=== PATIENT | male | born 1945 | race Caucasian/White ===

== ENCOUNTER → 2017-03-02 | Outpatient (CLI) | payer MEDICARE, BC ==
[2015-11-15 11:45] VITALS: BP 100/50
[~2017-03-02] MED LIST: ASPI81TA9 PO; INSU100V8 SQ; LISI10TA2 PO; MORP15TA34 PO; MULT-475 PO; NAPR500T PO; OXYC-244 PO
--- NOTE | 2017-03-02 16:33 | CARD ---
APPROVED REPORT EXAM: Two-dimensional and M-mode echocardiogram with Doppler and color Doppler. Other Information Quality : Technically Limited Technically limited study due to body habitus. INDICATION Ascending Aortic Aneurysm 2D DIMENSIONS RVDd2.7 (2.9-3.5cm)Left Atrium(2D)3.7 (1.6-4.0cm) IVSd1.2 (0.7-1.1cm)Aortic Root(2D)4.3 (2.0-3.7cm) LVDd5.9 (3.9-5.9cm)LVOT Diameter2.7 (1.8-2.4cm) PWd1.3 (0.7-1.1cm)LVDs3.6 (2.5-4.0cm) FS (%) 30.0 %SV120.6 ml LVEF(%)60.0 (>50%) M-Mode DIMENSIONS Aortic Cusp Exc1.20 (1.5-2.0cm) Aortic Valve AoV Peak Tevin.288.0cm/sAoV VTI73.6cm AO Peak GR.33.0mmHgLVOT Peak Tevin.97.5cm/s LVOT VTI 22.76cmAO Mean GR.21mmHg MARTINA (VMAX)1.55zx4UHT (VTI)1.78cm2 Mitral Valve MV E Iypnkxsf463.6cm/sMV DECEL VPCW321zq MV A Ovnfghqs16.4cm/sMV VOH04ag E/A Ratio1.1MVA (PHT)3.16cm2 TDI E/Lateral E'15.1E/Medial E'17.7 Pulmonary Vein S1 Wzotjrnv54.1cm/sD2 Qelexwdd83.1cm/s PVa [id number] LEFT VENTRICLE The left ventricle is normal size. There is mild concentric left ventricular hypertrophy. The left ve ntricular systolic function is normal and the ejection fraction is within normal range. The Ejection Fraction is 55-60%. There is normal LV segmental wall motion. Transmitral Doppler flow pattern is Gra de I-abnormal relaxation pattern. RIGHT VENTRICLE The right ventricle is normal size. The right ventricular systolic function is normal. ATRIA The left atrium size is normal. The right atrium size is normal. The interatrial septum is intact wit h no evidence for an atrial septal defect or patent foramen ovale as noted on 2-D or Doppler imaging. AORTIC VALVE The aortic valve is severely thickened with decreased opening. Doppler and Color Flow revealed trace aortic regurgitation. Calculated aortic valve area is 1.78 cm2 with maximum pressure gradient of 33 m mHg and mean pressure gradient of 21 mmHg. Doppler and color-flow analysis revealed mild aortic steno sis. Visually the valve appears moderately stenotic. MITRAL VALVE The mitral valve is calcified but opens well. There is no evidence of mitral valve prolapse. There is no mitral valve stenosis. Doppler and Color Flow revealed no mitral valve regurgitation noted. TRICUSPID VALVE The tricuspid valve is normal in structure and function. Doppler and Color Flow revealed no tricuspid valve regurgitation noted. There is no tricuspid valve stenosis. PULMONIC VALVE Doppler and Color Flow revealed no pulmonic valvular regurgitation. There is no pulmonic valvular yolanda nosis. GREAT VESSELS The aortic root is mildly dilated at 4.3 cm. The ascending aorta is mildly dilated at 4.3 cm. The IVC was not visualized. PERICARDIAL EFFUSION There is no evidence of significant pericardial effusion. Critical Notification Critical Value: No <Conclusion> The left ventricular systolic function is normal and the ejection fraction is within normal range. Th e Ejection Fraction is 55-60%. There is normal LV segmental wall motion. Calculated aortic valve area is 1.78 cm2 with maximum pressure gradient of 33 mmHg and mean pressure gradient of 21 mmHg. Doppler and color-flow analysis revealed mild aortic stenosis. Visually the valv e appears moderately stenotic. The ascending aorta is mildly dilated at 4.3 cm.
== END | disposition home or self-care (01) ==
LOC: ECHO 09:45
PROVIDERS: ATTEND Internal Medicine Cardiovascular Disease
DX: I35.1 Nonrheumatic aortic (valve) insufficiency (principal)
CPT/HCPCS: 93306

== ENCOUNTER → 2017-09-10 | Outpatient (CLI) | payer MEDICARE, BC ==
[2015-11-15 11:45] VITALS: BP 100/50
[~2017-09-10] MED LIST changes: +ASPI-612 PO; -ASPI81TA9 PO; -MORP15TA34 PO; +MORP15TA80 PO; +NAPR-683 PO; -NAPR500T PO; -OXYC-244 PO; +OXYC-327 PO
--- NOTE | 2017-09-10 11:38 | CARD ---
APPROVED REPORT EXAM: Two-dimensional and M-mode echocardiogram with Doppler and color Doppler. Other Information Quality : Average INDICATION Aortic Valve Disease 2D DIMENSIONS Left Atrium(2D)3.3 (1.6-4.0cm)IVSd1.4 (0.7-1.1cm) Aortic Root(2D)3.7 (2.0-3.7cm)LVDd4.6 (3.9-5.9cm) LVOT Diameter2.0 (1.8-2.4cm)PWd1.2 (0.7-1.1cm) LVDs3.1 (2.5-4.0cm)FS (%) 33.5 % SV61.5 mlLVEF(%)62.3 (>50%) Aortic Valve AoV Peak Tevin.318.2cm/sAoV VTI87.6cm AO Peak GR.40.5mmHgLVOT Peak Tevin.68.1cm/s AO Mean GR.27mmHgAVA (VMAX)0.70cm2 MARTINA (VTI)0.70cm2 Mitral Valve MV E Nobckwnu69.3cm/sMV DECEL BSPA072en MV A Quczrygi08.0cm/sE/A Ratio0.8 Tricuspid Valve TR P. Cfkmxfry048oc/sRAP EIMRQDCE3shCf TR Peak Gr.39kvZeMCBU34meUd LEFT VENTRICLE The left ventricle is normal size. There is mild to moderate concentric left ventricular hypertrophy. Left ventricle systolic function is low normal. The Ejection Fraction is 50-55%. There is normal LV segmental wall motion. Transmitral Doppler flow pattern is consistent with mild diastolic dysfunction . RIGHT VENTRICLE The right ventricle is mildly dilated. The right ventricular systolic function is normal. ATRIA The left atrium size is normal. The right atrium is mildly dilated. The interatrial septum is intact with no evidence for an atrial septal defect or patent foramen ovale as noted on 2-D or Doppler imagi ng. AORTIC VALVE The aortic valve is mildly to moderately calcified. Doppler and Color Flow revealed no significant ao rtic regurgitation. There is moderate to severe valvular aortic stenosis. Calculated aortic valve are a is 0.7 cm2 with maximum pressure gradient of 41 mmHg and mean pressure gradient of 27 mmHg. MITRAL VALVE The mitral valve is calcified but opens well. There is no evidence of mitral valve prolapse. There is no mitral valve stenosis. Doppler and Color Flow revealed no mitral valve regurgitation noted. TRICUSPID VALVE The tricuspid valve is normal in structure. Doppler and Color Flow revealed trace tricuspid regurgita tion. There is no pulmonary hypertension. The PA pressure was estimated at 16 mmHg. There is no tricu spid valve prolapse or vegetation. There is no tricuspid valve stenosis. PULMONIC VALVE The pulmonary valve is normal in structure and function. Doppler and Color Flow revealed no pulmonic valvular regurgitation. There is no pulmonic valvular stenosis. GREAT VESSELS The aortic root is normal in size. The ascending aorta is normal in size. The IVC is normal in size a nd collapses >50% with inspiration. PERICARDIAL EFFUSION There is no pleural effusion. There is no evidence of significant pericardial effusion. Critical Notification Critical Value: No <Conclusion> Left ventricle systolic function is low normal. The Ejection Fraction is 50-55%. There is normal LV segmental wall motion. There is moderate to severe valvular aortic stenosis. Calculated aortic valve area is 0.7 cm2 with ma ximum pressure gradient of 41 mmHg and mean pressure gradient of 27 mmHg.
== END | disposition home or self-care (01) ==
LOC: ECHO 09:05
PROVIDERS: ATTEND Internal Medicine Cardiovascular Disease
DX: I35.0 Nonrheumatic aortic (valve) stenosis (principal); I51.7 Cardiomegaly
CPT/HCPCS: 93306

== ENCOUNTER → 2017-09-17 | Outpatient (CLI) | payer MEDICARE, BC ==
[2015-11-15 11:45] VITALS: BP 100/50
[~2017-09-17] MED LIST changes: +IOHEXOL 300 MG/ML 100ML VIAL. IV ONE
--- NOTE | 2017-09-17 11:45 | RAD ---
Examination: CT angiogram of the chest History: History of aortic aneurysm. Comparison: 03/15/2016 Technique: Axial CT and radiographic images were performed with IV contrast. Coronal and sagittal 3-D MIP reformats were performed. PQRS Compliance Statement: One or more of the following individualized dose reduction techniques were utilized for this examination: 1. Automated exposure control 2. Adjustment of the mA and/or kV according to patient size 3. Use of iterative reconstruction technique Findings: The visualized thyroid gland grossly is unremarkable. The central airways are patent. The ascending aorta measures 4.7 cm in transverse dimension which is unchanged compared to prior exam. Aortic valve calcifications identified. The visualized arch of the aorta, descending aorta demonstrate mild atherosclerotic calcifications. The heart size grossly appears unremarkable. No evidence of pericardial effusion. No radiologically significant mediastinal lymphadenopathy. Mild interstitial lung markings identified in the periphery of the lungs particularly in the bibasal lungs. There is mild decreased attenuation noted throughout the liver likely hepatic steatosis. Partially visualized cholelithiasis. The visualized adrenal glands grossly appears unremarkable. Coronary artery calcification is identified. There is no evidence of filling defect identified in the main pulmonary artery trunk and right and left main pulmonary arteries. Moderate degenerative changes thoracic spine. Impression: 1. Unchanged ascending aortic aneurysmal change. 2. Coronary artery calcifications. 3. Minimal interstitial lung markings prominent appearing interstitial lung markings identified in the periphery of the lungs similar to prior exam could be chronic interstitial changes. 4. Hepatic steatosis. Cholelithiasis.
== END | disposition home or self-care (01) ==
LOC: CT 14:44
PROVIDERS: ATTEND Internal Medicine Cardiovascular Disease
DX: I71.9 Aortic aneurysm of unspecified site, without rupture (principal); I70.0 Atherosclerosis of aorta; K80.20 Calculus of gallbladder without cholecystitis without obstruction; I25.10 Atherosclerotic heart disease of native coronary artery without angina pectoris; R91.8 Other nonspecific abnormal finding of lung field; K76.0 Fatty (change of) liver, not elsewhere classified
CPT/HCPCS: 71275; Q9967

== ENCOUNTER 2020-03-12 11:09 | Inpatient (IN) | payer MEDICARE, BC ==
[~2020-03-12] VITALS: Ht 185.4 cm; Wt 115.2 kg
[~2020-03-12 11:09] MED LIST changes: -IOHEXOL 300 MG/ML 100ML VIAL. IV ONE; -OXYC-327 PO; +OXYC1TAB19 PO
--- NOTE | 2020-03-12 11:50 | NUR ---
Patient arrived to room 205 via wheelchair at 1150. Patient is A&OX4. VSS. The patient, JAVIER BASS, 74 y/o, M admitted by ARIE AMADO MD, was given written information regarding hospital policies, unit procedures and contact persons. Valuables were checked and noted. Will continue to monitor.
[2020-03-12 11:51] VITALS: BP 130/56
[2020-03-12] MEDS ORDERED: FUROSEMIDE 40 MG/4 ML VIAL. IVP ONE ×2 (12:00→14:15)
[2020-03-12] MEDS ORDERED: GABA300C9 PO (12:35)
[2020-03-12] MEDS ORDERED: TAMS0.4C97 PO (12:35)
[2020-03-12] MEDS ORDERED: METO25TA4 PO (12:37)
--- NOTE | 2020-03-12 13:24 | RAD ---
CHEST PA LATERAL History: Reason: CONGESTIVE HEART FAILURE, WEAKNESS / Spl. Instructions: / History: Comparison: CT September 17, 2017 Findings: Linear and ill-defined of by lateral mid and lower lung opacities. No pleural effusion. No pneumothorax. Borderline enlarged cardiac size. DISH related changes of the thoracic spine. Impression: 1. Bilateral linear and ill-defined opacities, may represent atelectasis and/or consolidations. Recommend follow-up. Electronically signed by: Skyler Sanchez DO (03/12/2020 1:21 PM) [id number]
[2020-03-12 13:43] LABS: ALBUMIN 2.6 g/dL (3.4-5.0); ALBUMIN/GLOBULIN RATIO 0.7 (1.0-1.7); CALCIUM 7.8 mg/dL (8.5-10.1); CREATININE 1.9 mg/dL (0.7-1.3); GFR 34.7; POTASSIUM 4.6 mmol/L (3.5-5.1); TOTAL BILIRUBIN 1.4 mg/dL (0.2-1.0); TOTAL PROTEIN 6.5 g/dL (6.4-8.2)
--- NOTE | 2020-03-12 14:11 | EKG ---
[facility] [address] [place] [address] Test Date: 2020-03-12 Test Time: 14:07:43 Pat Name: JAVIER BASS Department: Room: 205 1 Gender: M Vice President Of Development: : 1945 Requested By: ARIELLE YEPEZ Order Number: [id number] Reading MD: Jeffrey Gonzalez MD Measurements Intervals [place] Rate: 71 P: 147 MO: 164 QRS: 189 QRSD: 98 T: 183 QT: 416 QTc: 457 Interpretive Statements SINUS RHYTHM LEAD MISPLACEMENT NON-SPECIFIC ST/T CHANGES Electronically Signed On 03-15-2020 12:18:26 CDT by Jeffrey Gonzalez MD
[2020-03-12 14:15] VITALS: BP 133/66
[2020-03-12 14:29] LABS: BASO % 1 % (0-3); EOS % 1 % (0-3); HEMATOCRIT 35.5 % (39.0-53.0); LYMPH # 0.6 x10^3/uL (1.0-4.8); LYMPH % 18 % (24-48); MEAN CORPUSCULAR HEMOGLOBIN 28 pg (25-35); MEAN CORPUSCULAR HGB CONC 34 g/dL (31-37); MEAN CORPUSCULAR VOLUME 83 fL (79-100); MONO # 0.2 x10^3/uL (0.0-1.1); MONO % 6 % (0-9); NEUT # 2.5 x10^3/uL (1.8-7.7); NEUT % 74 % (31-73); PLATELET COUNT 46 x10^3/uL (140-400); RED BLOOD COUNT 4.31 x10^6/uL (4.30-5.70); RED CELL DISTRIBUTION WIDTH 15.6 % (11.5-14.5); WHITE BLOOD COUNT 3.4 x10^3/uL (4.0-11.0)
[2020-03-12 14:38] VITALS: BP 119/69
[2020-03-12 15:05] LABS: PLT ESTIMATE DECREASED (ADEQUATE)
[2020-03-12] MEDS: INSULIN LISPRO 300 UNITS/3 ML VIAL. SQ SCH (17:00)
[2020-03-12 18:18] VITALS: BP 130/59
--- NOTE | 2020-03-12 19:30 | NUR ---
Assessment completed vss poc explained pt c/o bilateral lower ext foot pain will medicate pt and continue to monitor pt.Call light in reach bed alarm set will resume care.
--- NOTE | 2020-03-12 20:24 | NUR ---
Call placed to Dr. Gonzalez re pt with pain and no medication order.
[2020-03-12] MEDS: METOPROLOL TART IMMED RELEASE 25 MG TABLET. PO SCH (20:51)
[2020-03-12] MEDS: GABAPENTIN 300 MG CAPSULE. PO SCH (20:51)
[2020-03-12] MEDS: INSULIN GLARGINE SYRINGE. SQ SCH (20:52)
[2020-03-12] MEDS: oxyCODONE/APAP 7.5/325 1 TAB TABLET PO PRN (20:57)
[2020-03-12 23:22] VITALS: BP 114/70
[2020-03-13 02:58] VITALS: BP 107/62
[2020-03-13 05:20] LABS: CALCIUM 7.6 mg/dL (8.5-10.1); CREATININE 1.8 mg/dL (0.7-1.3); MAGNESIUM 1.9 mg/dL (1.8-2.4); POTASSIUM 3.8 mmol/L (3.5-5.1)
[2020-03-13 07:09] VITALS: BP 117/65
[2020-03-13] MEDS: INSULIN LISPRO 300 UNITS/3 ML VIAL. SQ SCH ×3 (08:00→17:00)
[2020-03-13] MEDS: METOPROLOL TART IMMED RELEASE 25 MG TABLET. PO SCH ×2 (08:05→21:20)
[2020-03-13] MEDS: TAMSULOSIN 0.4 MG CAP.ER.24H. PO SCH (08:05)
[2020-03-13] MEDS: GABAPENTIN 300 MG CAPSULE. PO SCH ×2 (08:05→21:20)
[2020-03-13] MEDS: FUROSEMIDE 40 MG/4 ML VIAL. IVP SCH ×2 (08:06→15:45)
[2020-03-13] MEDS: oxyCODONE/APAP 7.5/325 1 TAB TABLET PO PRN ×2 (08:06→21:21)
--- NOTE | 2020-03-13 09:40 | PDOC ---
CARDIOLOGY PROGRESS NOTE SUBJECTIVE: Please see paper H&P from chart for full details: Mr. Pruett was admitted yesterday directly from the office due to progressive HF symptoms. Initial evaluation confirms suspicions for heart failure and also new diagnosis of thrombocytopenia (Patient apparently was having some sort of w/u with PCP recently but not yet completed) Today, he reports that he urinated well. Denies any pain but continues to have dyspnea issues. No palpitations. No new bleeding issues. OBJECTIVE: Vital Signs/I&O: Vital Signs Date Time Temp Pulse Resp B/P (MAP) Pulse Ox O2 Delivery O2 Flow Rate FiO2 03/13/20 08:06 95 Room Air 03/13/20 08:05 74 117/65 03/13/20 07:09 98.0 18 98.0 I & O 03/12/20 03/12/20 03/13/20 15:00 23:00 07:00 Intake Total 60 ml 1100 ml Output Total 200 ml 1225 ml 400 ml Balance -200 ml -1165 ml 700 ml Objective: Sitting in bed. No acute distress Neck veins at 7 cm. Normal heart tones. Lungs clr Obese abdomen 1+ pedal edema. Bilateral small petechiae and ecchymosis on the shins CURRENT MEDICATIONS: Lasix 40mg IV BID Metoprolol 25mg p.o bid. DIAGNOSTIC TESTING: Labs reviewed. Cr 1.8 Plt 46. Labs: Laboratory Tests 03/12/20 13:20 03/13/20 04:30 Laboratory Tests Test 03/12/20 12:17 03/12/20 13:20 03/12/20 17:09 03/13/20 04:30 Glucose (Fingerstick) 106 mg/dL (70-99) H 108 mg/dL (70-99) H White Blood Count 3.4 x10^3/uL (4.0-11.0) L Red Blood Count 4.31 x10^6/uL (4.30-5.70) Hemoglobin 12.0 g/dL (13.0-17.5) L Hematocrit 35.5 % (39.0-53.0) L Mean Corpuscular Volume 83 fL (79-100) Mean Corpuscular Hemoglobin 28 pg (25-35) Mean Corpuscular Hemoglobin Concent 34 g/dL (31-37) Red Cell Distribution Width 15.6 % (11.5-14.5) H Platelet Count 46 x10^3/uL (140-400) L Neutrophils (%) (Auto) 74 % (31-73) H Lymphocytes (%) (Auto) 18 % (24-48) L Monocytes (%) (Auto) 6 % (0-9) Eosinophils (%) (Auto) 1 % (0-3) Basophils (%) (Auto) 1 % (0-3) Neutrophils # (Auto) 2.5 x10^3/uL (1.8-7.7) Lymphocytes # (Auto) 0.6 x10^3/uL (1.0-4.8) L Monocytes # (Auto) 0.2 x10^3/uL (0.0-1.1) Eosinophils # (Auto) 0.0 x10^3/uL (0.0-0.7) Basophils # (Auto) 0.0 x10^3/uL (0.0-0.2) Platelet Estimate Decreased (ADEQUATE) Sodium Level 133 mmol/L (136-145) L 131 mmol/L (136-145) L Potassium Level 4.6 mmol/L (3.5-5.1) 3.8 mmol/L (3.5-5.1) Chloride Level 100 mmol/L (98-107) 99 mmol/L (98-107) Carbon Dioxide Level 24 mmol/L (21-32) 24 mmol/L (21-32) Anion Gap 9 (6-14) 8 (6-14) Blood Urea Nitrogen 33 mg/dL (8-26) H 33 mg/dL (8-26) H Creatinine 1.9 mg/dL (0.7-1.3) H 1.8 mg/dL (0.7-1.3) H Estimated GFR (Cockcroft-Gault) 34.7 37.0 BUN/Creatinine Ratio 17 (6-20) Glucose Level 103 mg/dL (70-99) H 89 mg/dL (70-99) Calcium Level 7.8 mg/dL (8.5-10.1) L 7.6 mg/dL (8.5-10.1) L Total Bilirubin 1.4 mg/dL (0.2-1.0) H Aspartate Amino Transf (AST/SGOT) 19 U/L (15-37) Alkaline Phosphatase 140 U/L (46-116) H Total Protein 6.5 g/dL (6.4-8.2) Albumin 2.6 g/dL (3.4-5.0) L Albumin/Globulin Ratio 0.7 (1.0-1.7) L Thyroid Stimulating Hormone (TSH) 3.319 uIU/mL (0.358-3.74) Test 03/13/20 07:51 Glucose (Fingerstick) 72 mg/dL (70-99) ASSESSMENT: 1. Acute probable systolic and diastolic HF - Awaiting echo tomorrow. 2. Acute kidney injury - likely related to #1 3. Thrombocytopenia - etiology unclear 4. Moderate aortic stenosis with known bicuspid valve and ascending aortic aneurysm. PLAN: 1. Check coags, repeat CBC today. Await hematology eval. 2. Continue current diuresis with close monitoring of renal function. 3. Will likely need a RHC on sunday. 4. Consider outpt CT scan for evaluation of aneurysm after renal function stabilizes. Discussed with nursing staff and patient. Thanks. ARIE AMADO MD March 13, 2020 09:40
[2020-03-13 10:31] LABS: BASO % 1 % (0-3); EOS % 1 % (0-3); HEMATOCRIT 33.3 % (39.0-53.0); HEMOGLOBIN 11.3 g/dL (13.0-17.5); LYMPH # 0.8 x10^3/uL (1.0-4.8); LYMPH % 22 % (24-48); MEAN CORPUSCULAR HEMOGLOBIN 28 pg (25-35); MEAN CORPUSCULAR HGB CONC 34 g/dL (31-37); MEAN CORPUSCULAR VOLUME 83 fL (79-100); MONO # 0.3 x10^3/uL (0.0-1.1); MONO % 7 % (0-9); NEUT # 2.4 x10^3/uL (1.8-7.7); NEUT % 69 % (31-73); PLATELET COUNT 55 x10^3/uL (140-400); RED BLOOD COUNT 4.03 x10^6/uL (4.30-5.70); RED CELL DISTRIBUTION WIDTH 15.8 % (11.5-14.5); WHITE BLOOD COUNT 3.4 x10^3/uL (4.0-11.0)
[2020-03-13 10:46] VITALS: BP 114/57
[2020-03-13 11:18] LABS: PROTHROMBIN TIME PATIENT 13.8 SEC (11.7-14.0)
[2020-03-13 14:35] VITALS: BP 105/55
--- NOTE | 2020-03-13 15:57 | PDOC2 ---
CONSULT Date of Consult Date of Consult DATE: 03/13/20 TIME: 15:06 Reason for Consult Reason for Consult: Thrombocytopenia Referring Physician Referring Physician: Dr. Jeffrey Gonzalez Identification/Chief Complaint Chief Complaint Pancytopenia Source Source: Chart review History of Present Illness Reason for Visit: Mr. Ned Pruett is a 74 year-old male with past medical history significant for morbid obesity, diabetes mellitus, hepatic steatosis at least since 2015, hyperlipidemia, increased interstitial markings on CT chest from 5841-7808, concerning for ILD, emphysema/COPD on 03/12/20 CXR, bicuspid aortic valve, moderate aortic stenosis in 2017 with aortic valve area of 0.7 cm2, BPH, history of early stage colon cancer (cecum), s/p right hemicolectomy in 04/2014. According to Dr. Jeffrey Gonzalez, the patient was admitted with worsening shortness of breath/CHF. 03/12/20 CBC revealed pancytopenia, with WBC 3.4, Hgb 12.0, platelets 46. Prior CBC from 04/2014 was completely normal. Apparently, work-up for recent thrombocytopenia was initiated by PCP, results pending. The patient, apparently, has new onset renal failure as well, with creatinine of 1.8 as of 03/12/20. Past Medical History Cardiovascular: CHF, Hyperlipidemia, Aortic stenosis Pulmonary: COPD CENTRAL NERVOUS SYSTEM: Periperal neuropathy GI: Other (Cholelithiasis) Heme/Onc: Cancer (Cecum) Musculoskeletal: low back pain, Osteoarthritis, Swelling Renal/: Acute renal failure, Benign prostatic enlarg. Endocrine: Diabetes Past Surgical History Past Surgical History: Colon Resection Social History Quit ALCOHOL: occassional Current Problem List Problem List Pancytopenia, renal failure, morbid obesity, diabetes mellitus, hepatic steatosis at least since 2015, hyperlipidemia, increased interstitial markings on CT chest from 3154-3952, concerning for ILD, emphysema/COPD on 03/12/20 CXR, bicuspid aortic valve, moderate aortic stenosis in 2017 with aortic valve area of 0.7 cm2, BPH. Current Medications Current Medications Current Medications Furosemide (Lasix) 40 mg 1X ONCE IVP ; Start 03/12/20 at 12:00; Stop 03/12/20 at 14:03; Status DC Furosemide (Lasix) 60 mg 1X ONCE IVP Last administered on 03/12/20at 14:18; Start 03/12/20 at 14:15; Stop 03/12/20 at 14:16; Status DC Gabapentin (Neurontin) 300 mg BID PO Last administered on 03/13/20at 08:05; Start 03/12/20 at 21:00 Insulin Glargine (Lantus Syringe) 70 unit QHS SQ Last administered on 03/12/20at 20:52; Start 03/12/20 at 21:00 Metoprolol Tartrate (Lopressor) 25 mg BID PO Last administered on 03/13/20at 08:05; Start 03/12/20 at 21:00 Tamsulosin HCl (Flomax) 0.4 mg DAILY PO Last administered on 03/13/20at 08:05; Start 03/13/20 at 09:00 Furosemide (Lasix) 40 mg BID94 IVP Last administered on 03/13/20at 08:06; Start 03/13/20 at 09:00 Insulin Human Lispro (HumaLOG) 0-5 UNITS TIDWMEALS SQ ; Start 03/12/20 at 17:00 Dextrose (Dextrose 50%-Water Syringe) 12.5 gm PRN Q15MIN PRN IV SEE COMMENTS; Start 03/12/20 at 14:15 Oxycodone/ Acetaminophen (Percocet 7.5/ 325) 1 tab PRN Q6HRS PRN PO PAIN Last administered on 03/13/20at 08:06; Start 03/12/20 at 20:45 Active Scripts Active Reported Metoprolol Tartrate 25 Mg Tablet 25 Mg PO BID Flomax (Tamsulosin Hcl) 0.4 Mg Cap.er.24h 1 Cap PO DAILY Gabapentin 300 Mg Capsule 300 Mg PO BID Lantus (Insulin Glargine,Hum.rec.anlog) 100 Unit/1 Ml Vial 70 Unit SQ QHS Lisinopril 10 Mg Tablet 10 Mg PO DAILY Naprosyn (Naproxen) 500 Mg Tablet 1,000 Mg PO DAILY Percocet 7.5-325 Mg Tablet (Oxycodone/Acetaminophen) 1 Each Tablet 1 Tab PO PRN TID PRN Allergies Allergies: Coded Allergies: No Known Drug Allergies (Unverified , 04/27/14) ROS Respiratory: YES: Shortness of breath, SOB with excertion Cardiovascular: yes Edema Genitourinary: YES Frequency, YES Retention, YES Urgency Musculoskeletal: Yes Joint Pain Neurological: Yes Numbness/Tingling Physical Exam Physical Exam Obese male in no acute distress. 1+ pitting edema LE. Vitals VITALS Vital Signs Date Time Temp Pulse Resp B/P (MAP) Pulse Ox O2 Delivery O2 Flow Rate FiO2 03/13/20 14:35 97.8 73 20 105/55 (72) 100 Nasal Cannula 2.0 97.8 Labs Labs Laboratory Tests Test 03/12/20 12:17 03/12/20 13:20 03/12/20 17:09 03/13/20 04:30 Glucose (Fingerstick) 106 mg/dL (70-99) 108 mg/dL (70-99) White Blood Count 3.4 x10^3/uL (4.0-11.0) 3.4 x10^3/uL (4.0-11.0) Red Blood Count 4.31 x10^6/uL (4.30-5.70) 4.03 x10^6/uL (4.30-5.70) Hemoglobin 12.0 g/dL (13.0-17.5) 11.3 g/dL (13.0-17.5) Hematocrit 35.5 % (39.0-53.0) 33.3 % (39.0-53.0) Mean Corpuscular Volume 83 fL (79-100) 83 fL (79-100) Mean Corpuscular Hemoglobin 28 pg (25-35) 28 pg (25-35) Mean Corpuscular Hemoglobin Concent 34 g/dL (31-37) 34 g/dL (31-37) Red Cell Distribution Width 15.6 % (11.5-14.5) 15.8 % (11.5-14.5) Platelet Count 46 x10^3/uL (140-400) 55 x10^3/uL (140-400) Neutrophils (%) (Auto) 74 % (31-73) 69 % (31-73) Lymphocytes (%) (Auto) 18 % (24-48) 22 % (24-48) Monocytes (%) (Auto) 6 % (0-9) 7 % (0-9) Eosinophils (%) (Auto) 1 % (0-3) 1 % (0-3) Basophils (%) (Auto) 1 % (0-3) 1 % (0-3) Neutrophils # (Auto) 2.5 x10^3/uL (1.8-7.7) 2.4 x10^3/uL (1.8-7.7) Lymphocytes # (Auto) 0.6 x10^3/uL (1.0-4.8) 0.8 x10^3/uL (1.0-4.8) Monocytes # (Auto) 0.2 x10^3/uL (0.0-1.1) 0.3 x10^3/uL (0.0-1.1) Eosinophils # (Auto) 0.0 x10^3/uL (0.0-0.7) 0.0 x10^3/uL (0.0-0.7) Basophils # (Auto) 0.0 x10^3/uL (0.0-0.2) 0.0 x10^3/uL (0.0-0.2) Platelet Estimate Decreased (ADEQUATE) Sodium Level 133 mmol/L (136-145) 131 mmol/L (136-145) Potassium Level 4.6 mmol/L (3.5-5.1) 3.8 mmol/L (3.5-5.1) Chloride Level 100 mmol/L (98-107) 99 mmol/L (98-107) Carbon Dioxide Level 24 mmol/L (21-32) 24 mmol/L (21-32) Anion Gap 9 (6-14) 8 (6-14) Blood Urea Nitrogen 33 mg/dL (8-26) 33 mg/dL (8-26) Creatinine 1.9 mg/dL (0.7-1.3) 1.8 mg/dL (0.7-1.3) Estimated GFR (Cockcroft-Gault) 34.7 37.0 BUN/Creatinine Ratio 17 (6-20) Glucose Level 103 mg/dL (70-99) 89 mg/dL (70-99) Calcium Level 7.8 mg/dL (8.5-10.1) 7.6 mg/dL (8.5-10.1) Magnesium Level 2.0 mg/dL (1.8-2.4) 1.9 mg/dL (1.8-2.4) Total Bilirubin 1.4 mg/dL (0.2-1.0) Aspartate Amino Transf (AST/SGOT) 19 U/L (15-37) Alanine Aminotransferase (ALT/SGPT) 10 U/L (16-63) Alkaline Phosphatase 140 U/L (46-116) Troponin I Quantitative 0.026 ng/mL (0.000-0.055) PM-Osi-S-Type Natriuretic Peptide 4726 pg/mL (0-449) Total Protein 6.5 g/dL (6.4-8.2) Albumin 2.6 g/dL (3.4-5.0) Albumin/Globulin Ratio 0.7 (1.0-1.7) Thyroid Stimulating Hormone (TSH) 3.319 uIU/mL (0.358-3.74) Test 03/13/20 07:51 03/13/20 10:40 03/13/20 11:17 Glucose (Fingerstick) 72 mg/dL (70-99) 96 mg/dL (70-99) Prothrombin Time 13.8 SEC (11.7-14.0) Prothromb Time International Ratio 1.1 (0.8-1.1) Activated Partial Thromboplast Time 47 SEC (24-38) Laboratory Tests Test 03/12/20 17:09 03/13/20 04:30 03/13/20 07:51 03/13/20 10:40 Glucose (Fingerstick) 108 mg/dL (70-99) 72 mg/dL (70-99) White Blood Count 3.4 x10^3/uL (4.0-11.0) Red Blood Count 4.03 x10^6/uL (4.30-5.70) Hemoglobin 11.3 g/dL (13.0-17.5) Hematocrit 33.3 % (39.0-53.0) Mean Corpuscular Volume 83 fL (79-100) Mean Corpuscular Hemoglobin 28 pg (25-35) Mean Corpuscular Hemoglobin Concent 34 g/dL (31-37) Red Cell Distribution Width 15.8 % (11.5-14.5) Platelet Count 55 x10^3/uL (140-400) Neutrophils (%) (Auto) 69 % (31-73) Lymphocytes (%) (Auto) 22 % (24-48) Monocytes (%) (Auto) 7 % (0-9) Eosinophils (%) (Auto) 1 % (0-3) Basophils (%) (Auto) 1 % (0-3) Neutrophils # (Auto) 2.4 x10^3/uL (1.8-7.7) Lymphocytes # (Auto) 0.8 x10^3/uL (1.0-4.8) Monocytes # (Auto) 0.3 x10^3/uL (0.0-1.1) Eosinophils # (Auto) 0.0 x10^3/uL (0.0-0.7) Basophils # (Auto) 0.0 x10^3/uL (0.0-0.2) Sodium Level 131 mmol/L (136-145) Potassium Level 3.8 mmol/L (3.5-5.1) Chloride Level 99 mmol/L (98-107) Carbon Dioxide Level 24 mmol/L (21-32) Anion Gap 8 (6-14) Blood Urea Nitrogen 33 mg/dL (8-26) Creatinine 1.8 mg/dL (0.7-1.3) Estimated GFR (Cockcroft-Gault) 37.0 Glucose Level 89 mg/dL (70-99) Calcium Level 7.6 mg/dL (8.5-10.1) Magnesium Level 1.9 mg/dL (1.8-2.4) Prothrombin Time 13.8 SEC (11.7-14.0) Prothromb Time International Ratio 1.1 (0.8-1.1) Activated Partial Thromboplast Time 47 SEC (24-38) Test 03/13/20 11:17 Glucose (Fingerstick) 96 mg/dL (70-99) Images Images 03/12/20 CHEST PA LATERAL History: Reason: CONGESTIVE HEART FAILURE, WEAKNESS Comparison: CT September 17, 2017 Findings: Linear and ill-defined of by lateral mid and lower lung opacities. No pleural effusion. No pneumothorax. Borderline enlarged cardiac size. DISH related changes of the thoracic spine. Impression: 1. Bilateral linear and ill-defined opacities, may represent atelectasis and/or consolidations. Recommend follow-up. 09/17/17 CT angiogram of the chest History: History of aortic aneurysm. Comparison: 03/15/2016 Findings: The visualized thyroid gland grossly is unremarkable. The central airways are patent. The ascending aorta measures 4.7 cm in transverse dimension which is unchanged compared to prior exam. Aortic valve calcifications identified. The visualized arch of the aorta, descending aorta demonstrate mild atherosclerotic calcifications. The heart size grossly appears unremarkable. No evidence of pericardial effusion. No radiologically significant mediastinal lymphadenopathy. Mild interstitial lung markings identified in the periphery of the lungs particularly in the bibasal lungs. There is mild decreased attenuation noted throughout the liver likely hepatic steatosis. Partially visualized cholelithiasis. The visualized adrenal glands grossly appears unremarkable. Coronary artery calcification is identified. There is no evidence of filling defect identified in the main pulmonary artery trunk and right and left main pulmonary arteries. Moderate degenerative changes thoracic spine. Impression: 1. Unchanged ascending aortic aneurysmal change. 2. Coronary artery calcifications. 3. Minimal interstitial lung markings prominent appearing interstitial lung markings identified in the periphery of the lungs similar to prior exam could be chronic interstitial changes. 4. Hepatic steatosis. Cholelithiasis. 07/08/14/ CT chest abdomen pelvis with intravenous contrast. HISTORY: Staging of colon cancer. COMPARISON: CT chest December 10, 2013. FINDINGS: Ascending thoracic aorta is borderline aneurysmal measuring 4.8 centimeters in maximum dimension and the ascending portion. Aortic atherosclerosis is seen. Coronary artery calcifications are noted. Aortic valve calcifications are present. No pericardial thickening is identified. Cardiac chambers do not appear enlarged. Trachea and mainstem bronchi appear patent. Mild amount of secretion can be seen within the right aspect of the mid trachea. Thyroid is symmetric. Mild peripheral fibrotic changes are seen especially at the lung bases, similar to previous study. The medial right upper lobe demonstrates elongated pulmonary nodule measuring 5 millimeters (series 8 image 23), unchanged. The right upper lobe demonstrates 2-3 millimeter pulmonary nodule (series 8 image 36), unchanged. No acute airspace disease is seen. No pneumothorax or pleural effusion is identified. No new pulmonary nodule is identified. Liver, spleen, pancreas, and bilateral adrenal glands are unremarkable. Gallstone is seen at the gallbladder neck. No cholecystitis is identified. Bilateral kidneys enhance symmetrically. Interpolar region of the right kidney demonstrates 2.4 centimeter cyst. Aortic atherosclerosis is noted. No bowel obstruction or inflammation seen. Urinary bladder is unremarkable. Laparotomy changes are seen. Right colectomy with ileocolic anastomosis in the right upper quadrant involving the hepatic flexure is seen. Evaluation of the mucosa is limited. Adjacent to the anastomotic site, there is 3 centimeter apparent rounded soft tissue area which may be adherent stool. No abdominal or pelvic lymphadenopathy is seen. Degeneratibe changes are present in spine. No suspicious osseous lesions are seen. IMPRESSION: 1. Small pulmonary nodules in the right lung are without change with the larger measuring 5 millimeters. No new pulmonary nodule is seen. 2. No evidence of metastatic disease in the abdomen or pelvis. 3. Postsurgical changes of right colectomy with ileocolic anastomosis present in the right upper quadrant involving the hepatic flexure. Adjacent to the suture line, there is rounded apparent soft tissue density measuring 3 centimeters; this may be adherent stool, but recommend clinical correlation. 12/10/13 CT scan of the chest without contrast CLINICAL HISTORY: Followup pulmonary nodule. FINDINGS: Comparison study is dated 06/25/2013. Mild atherosclerotic calcification of the thoracic aorta and its branches is noted. The thoracic aorta is tortuous. No hilar, mediastinal or axillary lymphadenopathy is seen. The heart is normal in size. A 2 millimeter nodular opacity is seen within the right upper lobe which is unchanged since the previous examination. No new pulmonary nodule is seen. Very mild emphysematous changes are seen. Small areas of scaring are seen involving the right middle lobe and the lingula. No acute pulmonary infiltrate is seen. No pneumothorax or pleural effusion is noted. Dependent subsegmental atelectasis is seen involving both lower lobes. Images through the upper abdomen demonstrate small calcified gallstones within the dependent portions of the gallbladder. Atherosclerotic calcification of the abdominal aorta is seen. Degenerative changes are seen involving the thoracic spine. IMPRESSION: Stable CT appearance of the 2 millimeter nodular opacity involving the right upper lobe. No new pulmonary nodule is seen. Assessment/Plan Assessment/Plan Assessment: 74 year-old male with recent onset pancytopenia. The patient is very likely to have hypersplenism due to morbid obesity and prior evidence of hepatic steatosis on 1470-9211 CT scans. Aortic stenosis/CHF could certainly contribute to congestive liver disease and portal hypertension. Ned has a typical pattern of pancytopenia due to hypersplenism, with marked decrease in platelets, moderate decline in WBC, and only mild anemia. Diagnosis of hypersplenism could be ascertained by liver/spleen ultrasound. Other causes of pancytopenia, such as B12/folate deficiency, primary bone marrow disorder, viral illness (including hepatitis, HIV), autoimmune condition should be considered. Mildly elevated PTT of 47 of uncertain etiology. Would repeat before committing to extensive work-up. Acquired factor VIII inhibitor, contamination of specimen with heparin, and anticoagulants should all be considered. Etiology of renal failure is not certain, although could be related to diabetes, CHF, atherosclerosis. However, PATRICK/light chain analysis is warranted due to combination of anemia and renal failure. Plan: 1. Liver/spleen ultrasound. 2. B12/methylmalonic acid, hepatitis panel, serum SPEP with immunofixation, light chains, PTT ordered. 3. The patient may require platelet transfusion prior to surgical procedures, such as angiogram. Transfusion threshold as per level of comfort of Dr. Tiffanie lance, certainly for platelets < 50, unlikely to be needed for platelets > 80. 4. DVT prophylaxis with Lovenox 40 mg sc daily while platelets remain > 40 should be strongly considered in the absence of bleeding symptoms, due to increased risk of thromboembolic events in this hospitalized obese 74 year-old patient. 5. Follow-up appointment at [facility] within 2 weeks post discharge. 6. Bone marrow biopsy could be considered if the above work-up is negative. ROSS ZULETA MD March 13, 2020 15:57
[2020-03-13 19:30] VITALS: BP 125/64
[2020-03-13] MEDS: INSULIN GLARGINE SYRINGE. SQ SCH (21:30)
[2020-03-13 23:25] VITALS: BP 100/55
[2020-03-14 03:35] VITALS: BP 123/63
[2020-03-14 07:00] VITALS: BP 113/66
[2020-03-14] MEDS: DEXTROSE 50% 25 GM / 50ML DISP.SYRIN. IV PRN (07:24)
[2020-03-14] MEDS: INSULIN LISPRO 300 UNITS/3 ML VIAL. SQ SCH ×3 (07:28→16:26)
[2020-03-14] MEDS: TAMSULOSIN 0.4 MG CAP.ER.24H. PO SCH (08:55)
[2020-03-14] MEDS: GABAPENTIN 300 MG CAPSULE. PO SCH ×2 (08:55→21:20)
[2020-03-14] MEDS: METOPROLOL TART IMMED RELEASE 25 MG TABLET. PO SCH ×2 (08:56→21:19)
[2020-03-14] MEDS: FUROSEMIDE 40 MG/4 ML VIAL. IVP SCH ×2 (08:57→16:28)
--- NOTE | 2020-03-14 09:38 | RAD ---
ABDOMEN COMPLETE History: Reason: Pancytopenia. Please evaluate liver and spleen size/structure. / Spl. Instructions: / History: Comparison: None. Technique: Sonographic examination of the abdomen was performed and multiple grayscale and color Doppler static images were obtained. Findings: Liver demonstrates normal echogenicity. The liver measures 14.8 cm. Portal flow is patent. Common bile duct measures 6 mm in diameter. Cholelithiasis. No gallbladder wall thickening. No pericholecystic fluid. Visualized pancreas is homogeneous. The right kidney measures 11.5 x 6.4 x 5.8 cm. No hydronephrosis. Right simple renal cyst measures 2.7 x 2.5 x 2.5 cm. No follow-up imaging is recommended per consensus recommendations based on imaging criteria. The left kidney measures 12.8 x 6.5 x 5.9 cm. No hydronephrosis. The spleen measures 14.8 x 11.0 x 7.7 cm. Visualized portions of the abdominal aorta and IVC are normal. IMPRESSION: 1. Splenomegaly. 2. Cholelithiasis. Electronically signed by: Skyler Sanchez DO (03/14/2020 9:35 AM) [id number]
[2020-03-14 11:03] VITALS: BP 105/61
--- NOTE | 2020-03-14 11:13 | PDOC ---
CARDIOLOGY PROGRESS NOTE SUBJECTIVE: No new events. Reports that oxygen has been helping. No chest pain. continues to have dyspnea. Making urine. OBJECTIVE: Vital Signs/I&O: Vital Signs Date Time Temp Pulse Resp B/P (MAP) Pulse Ox O2 Delivery O2 Flow Rate FiO2 03/14/20 08:56 69 113/66 03/14/20 07:54 Room Air 03/14/20 07:00 97.5 20 99 2.0 97.5 I & O 03/13/20 03/13/20 03/14/20 15:00 23:00 07:00 Intake Total 720 ml 480 ml 350 ml Output Total 500 ml 1225 ml 250 ml Balance 220 ml -745 ml 100 ml Objective: lying in bed. getting echo trace LE edema, 1+ Pedal edema. normal heart tones. + murmur decreased breath sounds at lung bases. CURRENT MEDICATIONS: meds reviewed DIAGNOSTIC TESTING: labs pending u/s reviewed. Labs: Laboratory Tests Test 03/13/20 11:17 03/13/20 16:49 03/13/20 20:55 03/14/20 04:00 Glucose (Fingerstick) 96 mg/dL (70-99) 85 mg/dL (70-99) 98 mg/dL (70-99) Activated Partial Thromboplast Time 54 SEC (24-38) H Test 03/14/20 07:17 03/14/20 08:52 03/14/20 09:59 Glucose (Fingerstick) 59 mg/dL (70-99) L 64 mg/dL (70-99) L 117 mg/dL (70-99) H ASSESSMENT: 1. Acute on chronic diastolic HF. 2. Aortic stenosis. 3. Morbid obesity 4. 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 PLAN: 1. Repeat BMP today and if Cr stable, given after noon dose of lasix, otherwise hold 2. Plan for RHC tomorrow. Consider LHC based on renal function. 3. Will plan for plts prior to procedure if plts less than 50. Thanks. ARIE AMADO MD March 14, 2020 11:13
[2020-03-14 11:15] LABS: CALCIUM 7.7 mg/dL (8.5-10.1); CREATININE 1.7 mg/dL (0.7-1.3); GFR 39.5; POTASSIUM 3.8 mmol/L (3.5-5.1)
[2020-03-14 14:38] VITALS: BP 122/57
[2020-03-14 18:24] VITALS: BP 110/61
[2020-03-14] MEDS: oxyCODONE/APAP 7.5/325 1 TAB TABLET PO PRN (21:21)
[2020-03-14] MEDS: INSULIN GLARGINE SYRINGE. SQ SCH (21:31)
[2020-03-14 22:36] VITALS: BP 97/52
[2020-03-15 02:30] VITALS: BP 117/66
[2020-03-15 07:00] VITALS: BP 119/60
[2020-03-15] MEDS: INSULIN LISPRO 300 UNITS/3 ML VIAL. SQ SCH ×3 (08:00→17:00)
[2020-03-15 08:18] LABS: BASO % 1 % (0-3); EOS % 1 % (0-3); HEMATOCRIT 35.7 % (39.0-53.0); HEMOGLOBIN 12.2 g/dL (13.0-17.5); LYMPH # 0.6 x10^3/uL (1.0-4.8); LYMPH % 17 % (24-48); MEAN CORPUSCULAR HEMOGLOBIN 28 pg (25-35); MEAN CORPUSCULAR HGB CONC 34 g/dL (31-37); MEAN CORPUSCULAR VOLUME 82 fL (79-100); MONO # 0.3 x10^3/uL (0.0-1.1); MONO % 8 % (0-9); NEUT # 2.6 x10^3/uL (1.8-7.7); NEUT % 74 % (31-73); PLATELET COUNT 38 x10^3/uL (140-400); RED BLOOD COUNT 4.37 x10^6/uL (4.30-5.70); RED CELL DISTRIBUTION WIDTH 15.6 % (11.5-14.5); WHITE BLOOD COUNT 3.6 x10^3/uL (4.0-11.0)
--- NOTE | 2020-03-15 08:43 | CARD ---
MR#: [id number] Date of Study: 03/14/2020 Ordering Physician: ARIE AMADO, Referring Physician: ARIE AMADO, Tech: Amara Curran APPROVED REPORT EXAM: Two-dimensional and M-mode echocardiogram with Doppler and color Doppler. Other Information Quality : AverageHR: 69bpm Technically limited study due to body habitus. INDICATION Congestive Heart Failure Surgery/Intervention Aortic Aneurysm: Thoracic RISK FACTORS Hypertension Hyperlipidemia Diabetes 2D DIMENSIONS Left Atrium(2D)3.2 (1.6-4.0cm)IVSd1.7 (0.7-1.1cm) Aortic Root(2D)3.7 (2.0-3.7cm)LVDd4.9 (3.9-5.9cm) PWd1.3 (0.7-1.1cm)LVDs3.1 (2.5-4.0cm) FS (%) 36.9 %SV77.0 ml LVEF(%)66.6 (>50%) Aortic Valve AoV Peak Tevin.392.6cm/sAoV VTI98.7cm AO Peak GR.61.6mmHgLVOT VTI 21.12cm AO Mean GR.39mmHg Mitral Valve MV E Mnynzbiz38.4cm/sMV E Peak Gr.3mmHg MV DECEL [id number] A Clenhhsr65.8cm/s MV E Mean Gr.2mmHgE/A Ratio1.2 TDI Lateral E' P. V8.37cm/sMedial E' P. V6.63cm/s E/Lateral E'10.6E/Medial E'13.3 Tricuspid Valve TR P. [id number]/sRAP [id number] TR Peak Gr.23eqRhXYSI29tePu Pulmonary Vein S1 Zuclvyfo11.3cm/sS2 Salllfup41.59cm/s D2 Jyxehwuv49.6cm/sPVa [id number] LEFT VENTRICLE The left ventricle is normal size. There is mild to moderate concentric left ventricular hypertrophy. The left ventricular systolic function is normal. The Ejection Fraction is 50-55%. There is normal L V segmental wall motion. Transmitral Doppler flow pattern is Grade II-pseudonormal filling dynamics. RIGHT VENTRICLE The right ventricle is borderline dilated. There is normal right ventricular wall thickness. The righ t ventricular systolic function is normal. ATRIA The left atrium is borderline dilated. The right atrium is borderline dilated. The interatrial septum is intact with no evidence for an atrial septal defect or patent foramen ovale as noted on 2-D or Do ppler imaging. AORTIC VALVE A bicuspid aortic valve cannot be excluded. Doppler and Color Flow revealed trace aortic regurgitatio n. Calculated aortic valve area is 1.20 cm2 with maximum pressure gradient of 63 mmHg and mean pressu re gradient of 44 mmHg. There is moderate to severe valvular aortic stenosis. MITRAL VALVE The mitral valve is normal in structure and function. There is no evidence of mitral valve prolapse. There is no mitral valve stenosis. Doppler and Color Flow revealed no mitral valve regurgitation note d. TRICUSPID VALVE The tricuspid valve is normal in structure and function. Doppler and Color Flow revealed trace to mil d tricuspid regurgitation with an estimated PAP of 45 mmHg. There is no tricuspid valve stenosis. PULMONIC VALVE The pulmonic valve is not well visualized. Doppler and Color Flow revealed no pulmonic valvular regur gitation. GREAT VESSELS The aortic root is normal in size. The ascending aorta is Mildly dilated. The IVC is dilated and jamila apses <50% with inspiration. PERICARDIAL EFFUSION There is no evidence of significant pericardial effusion. Critical Notification Critical Value: No <Conclusion> The left ventricular systolic function is normal. The Ejection Fraction is 50-55%. There is normal LV segmental wall motion. There is moderate to severe valvular aortic stenosis with maximum pressure gradient of 63 mmHg and me an pressure gradient of 44 mmHg. Mild tricuspid regurgitation with an estimated PAP of 45 mmHg. There is no evidence of significant pericardial effusion. Signed by : David Tomas, Electronically Approved : 03/15/2020 08:42:49
[2020-03-15 10:20] VITALS: BP 111/64
--- NOTE | 2020-03-15 11:29 | NUR ---
SS following for discharge planning. SS reviewed pt chart and discussed with pt RN. Pt is from home with family and is currently requiring oxygen. PT/OT recommended home with assistance. Pt having platelets today and scheduled for right heart cath. SS will continue to follow for discharge planning.
--- NOTE | 2020-03-15 12:29 | PDOC ---
ARCADIO SURESH PROVIDER RELATIONS SPECIALIST 03/15/20 1229: CARDIO Progress Notes Date and Time Date of Service 03/15/20 Time of Evaluation 1210 Subjective Subjective: No Chest Pain, No Palpitations, Other (breathing improved ) Vitals Vitals Vital Signs Date Time Temp Pulse Resp B/P (MAP) Pulse Ox O2 Delivery O2 Flow Rate FiO2 03/15/20 10:20 98.8 84 20 111/64 (80) 96 Room Air 98.8 03/15/20 07:00 2.0 Weight Weight [ ] Input and Output Intake and Output Intake and Output 03/15/20 07:00 Intake Total 1060 ml Output Total 2275 ml Balance -1215 ml Intake Oral 1060 ml Output Urine Total 2275 ml Laboratory Labs Laboratory Tests Test 03/14/20 16:20 03/14/20 21:05 03/15/20 07:31 03/15/20 08:00 Glucose (Fingerstick) 87 mg/dL (70-99) 101 mg/dL (70-99) 62 mg/dL (70-99) White Blood Count 3.6 x10^3/uL (4.0-11.0) Red Blood Count 4.37 x10^6/uL (4.30-5.70) Hemoglobin 12.2 g/dL (13.0-17.5) Hematocrit 35.7 % (39.0-53.0) Mean Corpuscular Volume 82 fL (79-100) Mean Corpuscular Hemoglobin 28 pg (25-35) Mean Corpuscular Hemoglobin Concent 34 g/dL (31-37) Red Cell Distribution Width 15.6 % (11.5-14.5) Platelet Count 38 x10^3/uL (140-400) Neutrophils (%) (Auto) 74 % (31-73) Lymphocytes (%) (Auto) 17 % (24-48) Monocytes (%) (Auto) 8 % (0-9) Eosinophils (%) (Auto) 1 % (0-3) Basophils (%) (Auto) 1 % (0-3) Neutrophils # (Auto) 2.6 x10^3/uL (1.8-7.7) Lymphocytes # (Auto) 0.6 x10^3/uL (1.0-4.8) Monocytes # (Auto) 0.3 x10^3/uL (0.0-1.1) Eosinophils # (Auto) 0.0 x10^3/uL (0.0-0.7) Basophils # (Auto) 0.0 x10^3/uL (0.0-0.2) Physical Exam HEENT: Neck Supple W Full Motion Chest: Symmetric LUNGS: Other (diminished bases) Heart: RRR Abdomen: Soft N/T Extremities: Other (1+ bilateral LE edema ) Neurology: alert, oriented, follow commands Assessment Assessment 1. Acute on chronic diastolic HF; Echo with preserved LV systolic function 2. Aortic stenosis; moderate to severe per echo 3. Hypertension 4. Diabetes, II 5. Morbid obesity 6. Thrombocytopenia; PLT down to 38 Recommendations Needs left and right heart cath, but will hold off on today given significant thrombocytopenia PLTs transfusion; give initial tomorrow am and subsequent in laboratory associate HemeOn evaluation Will plan for L and R heart cath tomorrow. Diuresis AM labs Supportive care Justicifation of Admission Dx: Justifications for Admission: Justification of Admission Dx: Yes CHF: Hemodynamic Instability ARIE AMADO MD 03/16/20 0830: CARDIO Progress Notes Plan Plan Late entry for 03/15/2020 Patient seen and examined. Agree with above nurse practitioner note. He needs continued admission for severe thrombocytopenia and further work-up as well as severe aortic stenosis with persistent heart failure symptoms and exertional dyspnea. Discussed case with the patient, his son and hematology oncology. We will plan for platelet transfusion and a cardiac catheterization to rule out occult coronary disease. I also discussed with him that he might need evaluation at a tertiary Medical Center for treatment of his aortic stenosis. Discussed risks and benefits of cardiac catheterization and the patient and son are willing to proceed. ARCADIO SURESH APRN Mar 15, 2020 12:29 ARIE AMADO MD Mar 16, 2020 08:30
--- NOTE | 2020-03-15 13:46 | PDOC ---
Progress Note Current Problem List Problems: (1) Pancytopenia Subjective Subjective Follow-up to discuss labs. ROS ROS No nausea No vomiting No pain No rash Vital Sign Vital Signs Vital Signs Date Time Temp Pulse Resp B/P (MAP) Pulse Ox O2 Delivery O2 Flow Rate FiO2 03/15/20 10:20 98.8 84 20 111/64 (80) 96 Room Air 98.8 03/15/20 07:00 2.0 Physical Exam PHYSICAL EXAM GENERAL: NAD, Alert HEENT: PERRL, OC/OP NECK: Supple, no JVD, no LN LUNGS: Clear HEART: S1S2, no gallop, no murmur ABD: Soft, NT, no organomegaly, no rebound EXT: No edema, no cyanosis SHELLFISH FARMING SUPERVISOR: Alert, oriented x 3, no focal neurologic deficit SKIN: No rash IV: ok Labs Lab Laboratory Tests Test 03/14/20 16:20 03/14/20 21:05 03/15/20 07:31 03/15/20 08:00 Glucose (Fingerstick) 87 mg/dL (70-99) 101 mg/dL (70-99) 62 mg/dL (70-99) White Blood Count 3.6 x10^3/uL (4.0-11.0) Red Blood Count 4.37 x10^6/uL (4.30-5.70) Hemoglobin 12.2 g/dL (13.0-17.5) Hematocrit 35.7 % (39.0-53.0) Mean Corpuscular Volume 82 fL (79-100) Mean Corpuscular Hemoglobin 28 pg (25-35) Mean Corpuscular Hemoglobin Concent 34 g/dL (31-37) Red Cell Distribution Width 15.6 % (11.5-14.5) Platelet Count 38 x10^3/uL (140-400) Neutrophils (%) (Auto) 74 % (31-73) Lymphocytes (%) (Auto) 17 % (24-48) Monocytes (%) (Auto) 8 % (0-9) Eosinophils (%) (Auto) 1 % (0-3) Basophils (%) (Auto) 1 % (0-3) Neutrophils # (Auto) 2.6 x10^3/uL (1.8-7.7) Lymphocytes # (Auto) 0.6 x10^3/uL (1.0-4.8) Monocytes # (Auto) 0.3 x10^3/uL (0.0-1.1) Eosinophils # (Auto) 0.0 x10^3/uL (0.0-0.7) Basophils # (Auto) 0.0 x10^3/uL (0.0-0.2) Test 03/15/20 12:29 Glucose (Fingerstick) 62 mg/dL (70-99) Objective Assessment Plt decreased down to 38 on 03/15/2020. 03/14/2020 abdominal ultrasound - liver demonstrates normal echogenicity. Spleen measures 14.8 x 11 x 7.7 cm. Would recommend checking peripheral blood for flow cytometry to evaluate for primary bone marrow disorder. Plan Plan of Care Plan: 1. Peripheral blood for flow cytometry. 2. Consider inpatient BM biopsy by IR if possible, as per hospitalist. Justicifation of Admission Dx: Justifications for Admission: Justification of Admission Dx: N/A Nutrition Consultation Dietary Evaluation: Recommendations by RD: Dietary education by RD, Increase Calorie Intake Comments: REC cardiac/ADA diet per pmhx, will adjust diet order; honor food preferences and provide snacks as requested REC glucerna supplements if PO intake <50% meals Expected Outcomes/Goals: PO intake to meet >75% est needs Interpretation of weight loss: >10% in 6 months Malnutrition Findings: Food and Nutrition Intake (Mod: <75% est energy req 7days Weight Status: Morbidly Obese ROSS ZULETA MD Mar 15, 2020 13:46
[2020-03-15] MEDS: TAMSULOSIN 0.4 MG CAP.ER.24H. PO SCH (14:08)
[2020-03-15] MEDS: GABAPENTIN 300 MG CAPSULE. PO SCH ×2 (14:08→21:05)
[2020-03-15] MEDS: METOPROLOL TART IMMED RELEASE 25 MG TABLET. PO SCH ×2 (14:09→21:05)
[2020-03-15] MEDS: FUROSEMIDE 40 MG/4 ML VIAL. IVP SCH ×2 (14:11→17:34)
[2020-03-15 14:29] VITALS: BP 144/66
[2020-03-15 19:30] VITALS: BP 139/67
[2020-03-15] MEDS: oxyCODONE/APAP 7.5/325 1 TAB TABLET PO PRN (21:05)
[2020-03-15] MEDS: INSULIN GLARGINE SYRINGE. SQ SCH (21:08)
[2020-03-15 23:15] VITALS: BP 120/58
[2020-03-16] VITALS (23 sets, daily range): BP systolic 102–158; BP diastolic 51–77
[2020-03-16] MEDS: DEXTROSE 50% 25 GM / 50ML DISP.SYRIN. IV PRN (07:45)
[2020-03-16] MEDS: METOPROLOL TART IMMED RELEASE 25 MG TABLET. PO SCH ×2 (07:51→21:07)
[2020-03-16] MEDS: INSULIN LISPRO 300 UNITS/3 ML VIAL. SQ SCH ×3 (07:54→17:00)
[2020-03-16] MEDS ORDERED: HEPARIN for ARTERIAL LINE 1,500 ML ONE (07:55)
[2020-03-16] MEDS ORDERED: LIDOCAINE 1% Multi-Dose 20 ML VIAL. ONE (07:55)
[2020-03-16] MEDS ORDERED: IODIXANOL 320 MG/ML 100 ML VIAL. ONE (07:55)
[2020-03-16] MEDS ORDERED: MIDAZOLAM HCL/PF 5 MG/5 ML VIAL. ONE (08:03)
[2020-03-16] MEDS ORDERED: fentaNYL PF VIAL 100 MCG/2 ML VIAL ONE (08:04)
[2020-03-16] MEDS ORDERED: HEPARIN for IV BOLUS 10,000 UNIT/10 ML VIAL. ONE (08:04)
[2020-03-16] MEDS ORDERED: NITROGLYCERIN 200 MCG/2 ML SYRINGE FOR CATH/VASC LAB. ONE (08:04)
[2020-03-16] MEDS ORDERED: VERAPAMIL 5 MG/2 ML VIAL. ONE (08:04)
[2020-03-16] MEDS ORDERED: MIDAZOLAM HCL/PF 5 MG/5 ML VIAL. IV ONE (08:15)
[2020-03-16] MEDS ORDERED: HEPARIN for IV BOLUS 10,000 UNIT/10 ML VIAL. IART ONE (08:15)
[2020-03-16] MEDS ORDERED: fentaNYL PF VIAL 100 MCG/2 ML VIAL IV ONE (08:15)
[2020-03-16] MEDS ORDERED: VERAPAMIL 5 MG/2 ML VIAL. IART ONE (08:15)
[2020-03-16] MEDS ORDERED: IODIXANOL 320 MG/ML 100 ML VIAL. IART ONE (08:15)
[2020-03-16] MEDS ORDERED: NITROGLYCERIN 200 MCG/2 ML SYRINGE FOR CATH/VASC LAB. IART ONE (08:15)
[2020-03-16] MEDS ORDERED: LIDOCAINE 1% Multi-Dose 20 ML VIAL. INJ ONE (08:15)
[2020-03-16] MEDS ORDERED: CONTRAST GIVEN. MC PRN (08:30)
--- NOTE | 2020-03-16 09:58 | NUR ---
SS following up with discharge planning. SS reviewed pt chart and discussed with pt RN. Pt is currently on room air. PT/OT recommended home with assistance. Pt had heart cath today. SS will continue to follow for discharge planning.
[2020-03-16] MEDS: TAMSULOSIN 0.4 MG CAP.ER.24H. PO SCH (10:17)
[2020-03-16] MEDS: GABAPENTIN 300 MG CAPSULE. PO SCH ×2 (10:17→21:07)
[2020-03-16] MEDS: FUROSEMIDE 40 MG/4 ML VIAL. IVP SCH (10:17)
--- NOTE | 2020-03-16 10:56 | CARD ---
MR#: [id number] Date of Study: 03/16/2020 Ordering Physician: ARIE AMADO, Referring Physician: ARIE AMADO, Tech: Kendra Chavez RT(R) APPROVED REPORT Technologist: Kendra Chavez RT(R) Nurse: Diane Guaman R.N. Procedure(s) performed: Contrast: 39 mL Visipaque 320 Fluoro time: 7.3 Minutes Dose: 65 Gycm2 Sedation Time: 55 Minutes RHC, Coronary angiography HISTORY : The patient is a 74 year-old male with a history of . INDICATION The indication(s) include : chest pain, dyspnea, valvular heart disease. [facility] Clinical Frailty Scale [facility] Clinical Frailty Scale: jose [place] CASE TECHNIQUE During this case, Fluoroscopy and low osmolar contrast were used for imaging. PROCEDURE NARRATIVE After appropriate informed consent the patient was brought to the catheterization laboratory and the right neck and right wrist were prepped and draped in usual sterile fashion. Access: Under 2% lidocaine local anesthesia a 6 Kenyan glide sheath was placed in the right radial artery. A 5 Kenyan sheath was inserted in the right internal jugular vein under ultrasound guidance. Procedure details: A 5 Kenyan PA catheter was advanced to the right heart chambers and pressures and saturations were ob tained. Diagnostic coronary angiography was performed with a JR4, [place] and JL4 catheters. Findings: Hemodynamics: Aorta 110/80 RA: 6 mmHg RV: 48/7 PA 45/10/25 Wedge: 12 PA saturation 68% Normal cardiac output by Chetan method Coronary angiography: Left main is a large-caliber vessel with mild luminal irregularities LAD is a moderate caliber vessel with proximal heavy calcification and a mid to distal 50% stenosis. Left circumflex is a non-Dominant vessel with mild luminal irregularities RCA is a moderate caliber dominant vessel with moderate diffuse irregularities of up to 40%. Conclusion 1. Normal biventricular filling pressures 2. No significant pulmonary hypertension 3. Normal cardiac output 4. Moderate nonobstructive coronary disease Recommendations 1. Evaluation at tertiary [facility] for aortic valve replacement with consideration of TAVR giv en severe thrombocytopenia. Signed by : Arie Amado, Electronically Approved : 03/16/2020 10:56:07
[2020-03-16 13:11] LABS: COMMENT IMMUNOFIX SERUM Note: (.); IMMUNOGLOBULIN A 68 mg/dL (61-437); IMMUNOGLOBULIN G 1656 mg/dL (603-1613); IMMUNOGLOBULIN M 513 mg/dL (15-143); KAPPA FREE 105.5 mg/L (3.3-19.4); KAPPA LAMBDA RATIO 1.37 (0.26-1.65); LAMBDA FREE 77.1 mg/L (5.7-26.3)
[2020-03-16 14:50] LABS: BASO % 1 % (0-3); EOS % 1 % (0-3); HEMOGLOBIN 11.7 g/dL (13.0-17.5); LYMPH # 0.7 x10^3/uL (1.0-4.8); LYMPH % 20 % (24-48); MEAN CORPUSCULAR HEMOGLOBIN 28 pg (25-35); MEAN CORPUSCULAR HGB CONC 35 g/dL (31-37); MEAN CORPUSCULAR VOLUME 82 fL (79-100); MONO # 0.3 x10^3/uL (0.0-1.1); MONO % 8 % (0-9); NEUT # 2.3 x10^3/uL (1.8-7.7); NEUT % 69 % (31-73); PLATELET COUNT 76 x10^3/uL (140-400); RED BLOOD COUNT 4.16 x10^6/uL (4.30-5.70); WHITE BLOOD COUNT 3.3 x10^3/uL (4.0-11.0)
[2020-03-16 15:19] LABS: CALCIUM 7.6 mg/dL (8.5-10.1); CREATININE 1.4 mg/dL (0.7-1.3); GFR 49.4; POTASSIUM 3.8 mmol/L (3.5-5.1)
[2020-03-16] MEDS ORDERED: MORPHINE SULFATE 2 MG/ML VIAL. IV PRN (19:30)
[2020-03-16] MEDS: oxyCODONE/APAP 7.5/325 1 TAB TABLET PO PRN (21:08)
[2020-03-16] MEDS: INSULIN GLARGINE SYRINGE. SQ SCH (21:16)
[2020-03-17] VITALS (7 sets, daily range): BP systolic 90–134; BP diastolic 57–79
[2020-03-17 04:21] LABS: HEMATOCRIT 34.4 % (39.0-53.0); HEMOGLOBIN 11.7 g/dL (13.0-17.5); RED BLOOD COUNT 4.22 x10^6/uL (4.30-5.70); RED CELL DISTRIBUTION WIDTH 15.5 % (11.5-14.5); WHITE BLOOD COUNT 3.7 x10^3/uL (4.0-11.0)
[2020-03-17 04:41] LABS: CALCIUM 7.8 mg/dL (8.5-10.1); CREATININE 1.3 mg/dL (0.7-1.3); GFR 53.8; POTASSIUM 3.7 mmol/L (3.5-5.1)
[2020-03-17] MEDS: INSULIN LISPRO 300 UNITS/3 ML VIAL. SQ SCH ×3 (08:00→16:42)
[2020-03-17] MEDS: DEXTROSE 50% 25 GM / 50ML DISP.SYRIN. IV PRN ×3 (08:00→08:07)
[2020-03-17] MEDS ORDERED: LIDOCAINE WITH 8.4% SOD BICARB 3 ML DISP.SYRIN. ONE (08:19)
[2020-03-17] MEDS ORDERED: FUROSEMIDE 40 MG TABLET. PO SCH (09:00)
[2020-03-17] MEDS ORDERED: fentaNYL PF VIAL 100 MCG/2 ML VIAL ONE (09:07)
[2020-03-17] MEDS ORDERED: MIDAZOLAM HCL/PF 2 MG/2 ML VIAL. ONE (09:07)
[2020-03-17] MEDS ORDERED: MIDAZOLAM HCL/PF 2 MG/2 ML VIAL. IV ONE (09:15)
[2020-03-17] MEDS ORDERED: LIDOCAINE WITH 8.4% SOD BICARB 3 ML DISP.SYRIN. IJ ONE (09:15)
[2020-03-17] MEDS ORDERED: fentaNYL PF VIAL 100 MCG/2 ML VIAL IV ONE (09:15)
[2020-03-17 09:23] LABS: CHOLESTEROL/HDL RATIO 5.7
--- NOTE | 2020-03-17 09:46 | NUR ---
Received report form Yamile HERNANDEZ, Sacrum biopsy on left posterior side, dressing in tact. BP was 90/62 A&Ox4 HR 80, 99%2LNC. Retook vitals, 118/65 HR79, 99% 2LNC. BM today.
[2020-03-17] MEDS: GABAPENTIN 300 MG CAPSULE. PO SCH (10:02)
[2020-03-17] MEDS: METOPROLOL TART IMMED RELEASE 25 MG TABLET. PO SCH (10:03)
[2020-03-17] MEDS: TAMSULOSIN 0.4 MG CAP.ER.24H. PO SCH (10:03)
--- NOTE | 2020-03-17 10:27 | RAD ---
CT-guided bone marrow biopsy. 03/17/2020 8:23 AM Indication: Pancytopenia, thrombocytopenia Discussion: The risks and benefits of the procedure, including but not limited to, bleeding and infection were discussed patient. Informed consent was obtained. The patient was brought to the CT scanner and placed in the prone position. A timeout procedure was performed. Foreign Agent CT imaging of the pelvis demonstrated left ilium amenable to bone marrow biopsy. The overlying soft tissues were prepped and draped using maximum sterile barrier technique. 1% lidocaine without epinephrine was administered for local anesthesia. Under intermittent CT guidance, an OncControl needle was advanced into the bone marrow of the left iliac crest. 2 Aspirates and 1 core biopsy samples were obtained. Samples were delivered to pathology was present at the time of procedure. The needle was removed and manual pressure held to achieve hemostasis. No immediate complications were identified. The procedure was performed under conscious sedation including continuous cardiopulmonary monitoring via dedicated sedation nurse. Sedation time: 20 minutes Impression: Successful CT-guided bone marrow biopsy of the left iliac crest . PQRS Compliance Statement: One or more of the following individualized dose reduction techniques were utilized for this examination: 1. Automated exposure control 2. Adjustment of the mA and/or kV according to patient size 3. Use of iterative reconstruction technique
--- NOTE | 2020-03-17 13:03 | NUR ---
SS following up with discharge planning. SS reviewed pt chart and discussed with pt RN. Pt had medical laboratory assistant procedure yesterday, 03/16/2020. Pt is currently requiring oxygen. PT recommended home with assistance. Per RN, pt will discharge today and follow up outpatient at either or [facility]. SS will continue to follow for discharge planning.
[2020-03-17] MEDS ORDERED: FURO40TA4 PO (14:18)
[2020-03-17] MEDS ORDERED: INSU100V8 SQ (14:18)
[2020-03-17] MEDS ORDERED: POTA10TA12 PO (14:18)
[2020-03-17] MEDS ORDERED: ATOR20TA58 PO (14:23)
[2020-03-17] MEDS ORDERED: POTASSIUM CHLORIDE 10 MEQ TABLET.ER. PO SCH (14:30)
--- NOTE | 2020-03-17 14:36 | PDOC3 ---
ARIELLE YEPEZ ELECTRONIC PUBLISHING SPECIALIST 03/17/20 1436: Discharge Summary Visit Information Date of Admission: March 12, 2020 Date of Discharge: Mar 17, 2020 Admitting Diagnosis: acute diastolic CHF, CAD Final Diagnosis Acute diastolic CHF, CAD, severe , pancytopenia, S/P BM Bx. DM2, HLP Brief Hospital Course Allergies Allergies Coded Allergies Type Severity Reaction Last Updated Verified No Known Drug Allergies 04/27/14 No Vital Signs Vital Signs Date Time Temp Pulse Resp B/P (MAP) Pulse Ox O2 Delivery O2 Flow Rate FiO2 03/17/20 10:42 97.6 72 18 110/62 (78) 100 Nasal Cannula 2.0 97.6 Lab Results Laboratory Tests Test 03/15/20 17:02 03/15/20 21:01 03/16/20 07:38 03/16/20 08:04 Glucose (Fingerstick) 92 mg/dL (70-99) 94 mg/dL (70-99) 63 mg/dL (70-99) 108 mg/dL (70-99) Test 03/16/20 11:59 03/16/20 14:35 03/16/20 16:56 03/16/20 20:23 Glucose (Fingerstick) 107 mg/dL (70-99) 74 mg/dL (70-99) 89 mg/dL (70-99) White Blood Count 3.3 x10^3/uL (4.0-11.0) Red Blood Count 4.16 x10^6/uL (4.30-5.70) Hemoglobin 11.7 g/dL (13.0-17.5) Hematocrit 34.0 % (39.0-53.0) Mean Corpuscular Volume 82 fL (79-100) Mean Corpuscular Hemoglobin 28 pg (25-35) Mean Corpuscular Hemoglobin Concent 35 g/dL (31-37) Red Cell Distribution Width 16.0 % (11.5-14.5) Platelet Count 76 x10^3/uL (140-400) Neutrophils (%) (Auto) 69 % (31-73) Lymphocytes (%) (Auto) 20 % (24-48) Monocytes (%) (Auto) 8 % (0-9) Eosinophils (%) (Auto) 1 % (0-3) Basophils (%) (Auto) 1 % (0-3) Neutrophils # (Auto) 2.3 x10^3/uL (1.8-7.7) Lymphocytes # (Auto) 0.7 x10^3/uL (1.0-4.8) Monocytes # (Auto) 0.3 x10^3/uL (0.0-1.1) Eosinophils # (Auto) 0.0 x10^3/uL (0.0-0.7) Basophils # (Auto) 0.0 x10^3/uL (0.0-0.2) Sodium Level 130 mmol/L (136-145) Potassium Level 3.8 mmol/L (3.5-5.1) Chloride Level 94 mmol/L (98-107) Carbon Dioxide Level 29 mmol/L (21-32) Anion Gap 7 (6-14) Blood Urea Nitrogen 28 mg/dL (8-26) Creatinine 1.4 mg/dL (0.7-1.3) Estimated GFR (Cockcroft-Gault) 49.4 Glucose Level 110 mg/dL (70-99) Calcium Level 7.6 mg/dL (8.5-10.1) Test 03/17/20 02:58 03/17/20 07:55 03/17/20 08:13 03/17/20 11:06 White Blood Count 3.7 x10^3/uL (4.0-11.0) Red Blood Count 4.22 x10^6/uL (4.30-5.70) Hemoglobin 11.7 g/dL (13.0-17.5) Hematocrit 34.4 % (39.0-53.0) Mean Corpuscular Volume 82 fL (79-100) Mean Corpuscular Hemoglobin 28 pg (25-35) Mean Corpuscular Hemoglobin Concent 34 g/dL (31-37) Red Cell Distribution Width 15.5 % (11.5-14.5) Platelet Count 67 x10^3/uL (140-400) Sodium Level 131 mmol/L (136-145) Potassium Level 3.7 mmol/L (3.5-5.1) Chloride Level 95 mmol/L (98-107) Carbon Dioxide Level 29 mmol/L (21-32) Anion Gap 7 (6-14) Blood Urea Nitrogen 23 mg/dL (8-26) Creatinine 1.3 mg/dL (0.7-1.3) Estimated GFR (Cockcroft-Gault) 53.8 Glucose Level 61 mg/dL (70-99) Calcium Level 7.8 mg/dL (8.5-10.1) Magnesium Level 2.0 mg/dL (1.8-2.4) Triglycerides Level 165 mg/dL (0-150) Cholesterol Level 102 mg/dL (0-200) LDL Cholesterol, Calculated 51 mg/dL (0-100) VLDL Cholesterol, Calculated 33 mg/dL (0-40) Non-HDL Cholesterol Calculated 84 mg/dL (0-129) HDL Cholesterol 18 mg/dL (40-60) Cholesterol/HDL Ratio 5.7 Glucose (Fingerstick) 47 mg/dL (70-99) 195 mg/dL (70-99) 77 mg/dL (70-99) Laboratory Tests Test 03/16/20 14:35 03/16/20 16:56 03/16/20 20:23 03/17/20 02:58 White Blood Count 3.3 x10^3/uL (4.0-11.0) 3.7 x10^3/uL (4.0-11.0) Red Blood Count 4.16 x10^6/uL (4.30-5.70) 4.22 x10^6/uL (4.30-5.70) Hemoglobin 11.7 g/dL (13.0-17.5) 11.7 g/dL (13.0-17.5) Hematocrit 34.0 % (39.0-53.0) 34.4 % (39.0-53.0) Mean Corpuscular Volume 82 fL (79-100) 82 fL (79-100) Mean Corpuscular Hemoglobin 28 pg (25-35) 28 pg (25-35) Mean Corpuscular Hemoglobin Concent 35 g/dL (31-37) 34 g/dL (31-37) Red Cell Distribution Width 16.0 % (11.5-14.5) 15.5 % (11.5-14.5) Platelet Count 76 x10^3/uL (140-400) 67 x10^3/uL (140-400) Neutrophils (%) (Auto) 69 % (31-73) Lymphocytes (%) (Auto) 20 % (24-48) Monocytes (%) (Auto) 8 % (0-9) Eosinophils (%) (Auto) 1 % (0-3) Basophils (%) (Auto) 1 % (0-3) Neutrophils # (Auto) 2.3 x10^3/uL (1.8-7.7) Lymphocytes # (Auto) 0.7 x10^3/uL (1.0-4.8) Monocytes # (Auto) 0.3 x10^3/uL (0.0-1.1) Eosinophils # (Auto) 0.0 x10^3/uL (0.0-0.7) Basophils # (Auto) 0.0 x10^3/uL (0.0-0.2) Sodium Level 130 mmol/L (136-145) 131 mmol/L (136-145) Potassium Level 3.8 mmol/L (3.5-5.1) 3.7 mmol/L (3.5-5.1) Chloride Level 94 mmol/L (98-107) 95 mmol/L (98-107) Carbon Dioxide Level 29 mmol/L (21-32) 29 mmol/L (21-32) Anion Gap 7 (6-14) 7 (6-14) Blood Urea Nitrogen 28 mg/dL (8-26) 23 mg/dL (8-26) Creatinine 1.4 mg/dL (0.7-1.3) 1.3 mg/dL (0.7-1.3) Estimated GFR (Cockcroft-Gault) 49.4 53.8 Glucose Level 110 mg/dL (70-99) 61 mg/dL (70-99) Calcium Level 7.6 mg/dL (8.5-10.1) 7.8 mg/dL (8.5-10.1) Glucose (Fingerstick) 74 mg/dL (70-99) 89 mg/dL (70-99) Magnesium Level 2.0 mg/dL (1.8-2.4) Triglycerides Level 165 mg/dL (0-150) Cholesterol Level 102 mg/dL (0-200) LDL Cholesterol, Calculated 51 mg/dL (0-100) VLDL Cholesterol, Calculated 33 mg/dL (0-40) Non-HDL Cholesterol Calculated 84 mg/dL (0-129) HDL Cholesterol 18 mg/dL (40-60) Cholesterol/HDL Ratio 5.7 Test 03/17/20 07:55 03/17/20 08:13 03/17/20 11:06 Glucose (Fingerstick) 47 mg/dL (70-99) 195 mg/dL (70-99) 77 mg/dL (70-99) Brief Hospital Course Mr. Pruett is a 74 old male admitted for decompensated CHF. He was seen in our office by Dr. Gonzalez and was noted with acute CHF. He is known for diastolic CHF, DM2 and was admitted directly on 03/12 for further aggressive measures. He did well with aggressive diurese and is now compensated. Per TTE he was noted with normal EF and WM but noted with moderate to severe which is contributing to his symptoms. LHC revealed nonobstructive CAD and normal biventricular filling pressures with no significant pulmonary hypertension and also normal CO after significant diurese. Further test did revealed hematologic changes with pancytopenia which is new including thrombocytopenia with splenomegaly requiring PLT transfusion. No obvious bleed but notable with some generalized petechias. Appreciate hematological input with Dr. Mccord and pt is currently S/P BM Bx today and tolerated procedure well. Site is stable without bleed. He is to follow up with them as an outpt and he will be provided a referral for future TAVR. PLT is currently at 67 so ASA is currently on hold until cleared by hematology. He is CP free, no SOA and no GI symptoms. He is notable for cholelithiasis an incidental finding and at this time since he is asymptomatic will consider outpt referral to general surgery once his hematological status and TAVR plans have been established. AOx3, LSCTA, no significant arrhythmias and maintaining SR. VSS with no significant arrhythmias. Right wrist arteriotomy site intact with no erythema, hematoma or swelling, Neurovascular status to right hand is intact. He did have hypoglycemic episodes and will reduce his lantus coverage at hs. Follow up with his PCP for further adjustment in his insulin coverage. Dietitian to see pt prior to DC. Discharge Information Condition at Discharge: Stable Follow Up: Weeks (6) Disposition/Orders: D/C to Home Scheduled Atorvastatin Calcium (Atorvastatin Calcium) 20 Mg Tablet, 10 MG PO QHS for cad for 10 Days, #30 Ref 3 Prescribed by: ARIELLE YEPEZ on 03/17/20 1423 Furosemide (Furosemide) 40 Mg Tablet, 40 MG PO DAILY for CHF for 30 Days, #30 Ref 3 Prescribed by: ARIELLE YEPEZ on 03/17/20 1418 Gabapentin (Gabapentin) 300 Mg Capsule, 300 MG PO BID for neuropathy, (Reported) Entered as Reported by: ROLDAN PEREZ on 03/12/201234 Last Action: Continued on 03/12/201405 by ARIELLE YEPEZ Insulin Glargine,Hum.rec.anlog (Lantus) 100 Unit/1 Ml Vial, 63 UNIT SQ QHS for DM, #1 make sure you have a bedtime snack as recommended Prescribed by: ARIELLE YEPEZ on 03/17/20 141 Lisinopril (Lisinopril) 10 Mg Tablet, 10 MG PO DAILY for FOR HYPERTENSION, #30 Ref 0 (Reported) Entered as Reported by: MARIELA IRAHETA on 04/27/14 1600 Last Action: Reviewed on 03/12/201234 by ROLDAN PEREZ Metoprolol Tartrate (Metoprolol Tartrate) 25 Mg Tablet, 25 MG PO BID for heart, (Reported) Entered as Reported by: ROLDAN PEREZ on 03/12/201236 Last Action: Continued on 03/12/201405 by ARIELLE YEPEZ Potassium Chloride (Klor-Con 10) 10 Meq Tablet.er, 1 TAB PO DAILY for CHF, lasix for 30 Days, #30 Ref 3 Prescribed by: ARIELLE YEPEZ on 03/17/20 1418 Tamsulosin Hcl (Flomax) 0.4 Mg Cap.er.24h, 1 CAP PO DAILY for BPH, #30 Ref 11 (Reported) Entered as Reported by: ROLDAN PEREZ on 03/12/201234 Last Action: Continued on 03/12/201405 by ARIELLE YEPEZ Scheduled PRN Oxycodone/Apap 7.5-325 (Percocet 7.5-325 Mg Tablet ) 1 Each Tablet, 1 TAB PO PRN TID PRN for PAIN, (Reported) Entered as Reported by: MARIELA IRAHETA on 04/27/14 1600 Last Action: Edited on 03/12/201234 by ROLDAN PEREZ Discontinued Medications Naproxen (Naprosyn) 500 Mg Tablet, 1,000 MG PO DAILY, (Reported) Entered as Reported by: MARIELA IRAHETA on 04/27/14 1600 Last Action: Reviewed on 03/12/20 123 by ROLDAN PEREZ Justicifation of Admission Dx: Justifications for Admission: Justification of Admission Dx: Yes CHF: Hemodynamic Instability ARIE GONZALEZ MD 03/17/20 1502: Discharge Summary Brief Hospital Course Brief Hospital Course Pt. seen and examined. Agree with above POWER SYSTEMS ENGINEER note. Pt. s/p cath, bone marrow biopsy and hem/onc eval outpt [facility] tavr referral after hem/onc eval completed. Supportive care. Discharge Information Scheduled Atorvastatin Calcium (Atorvastatin Calcium) 20 Mg Tablet, 10 MG PO QHS for cad for 10 Days, #30 Ref 3 Prescribed by: ARIELLE YEPEZ on 03/17/20 1423 Furosemide (Furosemide) 40 Mg Tablet, 40 MG PO DAILY for CHF for 30 Days, #30 Ref 3 Prescribed by: ARIELLE YEPEZ on 03/17/20 1418 Gabapentin (Gabapentin) 300 Mg Capsule, 300 MG PO BID for neuropathy, (Reported) Entered as Reported by: ROLDAN PEREZ on 03/12/20 1235 Last Action: Continued on 03/12/20 1406 by ARIELLE YEPEZ Insulin Glargine,Hum.rec.anlog (Lantus) 100 Unit/1 Ml Vial, 63 UNIT SQ QHS for DM, #1 make sure you have a bedtime snack as recommended Prescribed by: ARIELLE YEPEZ on 03/17/20 1418 Lisinopril (Lisinopril) 10 Mg Tablet, 10 MG PO DAILY for FOR HYPERTENSION, #30 Ref 0 (Reported) Entered as Reported by: MARIELA IRAHETA on 04/27/14 1600 Last Action: Reviewed on 03/12/20 1235 by ROLDAN PEREZ Metoprolol Tartrate (Metoprolol Tartrate) 25 Mg Tablet, 25 MG PO BID for heart, (Reported) Entered as Reported by: ROLDAN PEREZ on 03/12/20 1237 Last Action: Continued on 03/12/20 1406 by ARIELLE YEPEZ Potassium Chloride (Klor-Con 10) 10 Meq Tablet.er, 1 TAB PO DAILY for CHF, lasix for 30 Days, #30 Ref 3 Prescribed by: ARIELLE YEPEZ on 03/17/20 1418 Tamsulosin Hcl (Flomax) 0.4 Mg Cap.er.24h, 1 CAP PO DAILY for BPH, #30 Ref 11 (Reported) Entered as Reported by: ROLDAN PEERZ on 03/12/20 1235 Last Action: Continued on 03/12/20 1406 by ARIELLE YEPEZ Scheduled PRN Oxycodone/Apap 7.5-325 (Percocet 7.5-325 Mg Tablet ) 1 Each Tablet, 1 TAB PO PRN TID PRN for PAIN, (Reported) Entered as Reported by: MARIELA IRAHETA on 04/27/14 1600 Last Action: Edited on 03/12/201234 by ROLDAN PEREZ Discontinued Medications Naproxen (Naprosyn) 500 Mg Tablet, 1,000 MG PO DAILY, (Reported) Entered as Reported by: MARIELA IRAHETA on 04/27/14 1600 Last Action: Reviewed on 03/12/201234 by ARIELLE GARCIA APRN Mar 17, 2020 14:36 ARIE GONZALEZ MD Mar 17, 2020 15:02
--- NOTE | 2020-03-17 14:46 | SNU/HH DC ---
DISCHARGE WITH HOME HEALTH DISCHARGE INFORMATION: Discharge Date: Mar 17, 2020 Condition on Discharge: Stable CODE STATUS: Code Status: Full HOME HEALTH: Face to Face: I certify this patient is under my care and that I, or a nurse practitioner or physician's mri assistant working with me, had a face to face encounter that meets the physician face to face encounter requirements with this patient on []. Medical Complications: CHF RN For Eval/Treatment: Yes Pt Meets Homebound Status: Limited distance walking POST DISCHARGE ORDERS: Activity Instructions for Disc: Activity as tolerated Weight Bearing Status after Di: No restrictions DIET AFTER DISCHARGE: ADA CHECKS AFTER DISCHARGE: Checks after discharge: Check blood press - daily, Check blood sugar, ac/hs, Weigh Yourself Daily FOLLOW-UP: Follow up with: Dr. Gonzalez in 6 weeks Follow Up With: Dr. Mccord as directed Additional Instructions: Follow up with your primary care doctor in regards to your DM in 1-2 weeks TREATMENT/EQUIPMENT ORDERS: Adaptive Equipment Issued: None CERTIFICATION STATEMENT: Certification Statement: Certification Statement: Based on the above finding, I certify that this patient is confined to the home and needs intermittent fpc care, physical therapy and/or speech therapy, or continues to need occupational therapy.~ This patient is under my care, and I have initiated the establishment of the plan of care.~ This patient will be followed by myself or a community physician who will periodically review the plan of care. Home Meds Active Scripts Atorvastatin Calcium (ATORVASTATIN CALCIUM) 20 Mg Tablet, 10 MG PO QHS for cad for 10 Days, #30 TAB 3 Refills Prov:ARIELLE YEPEZ VENDING SUPERVISOR 03/17/20 Potassium Chloride (KLOR-CON 10) 10 Meq Tablet.er, 1 TAB PO DAILY for CHF, lasix for 30 Days, #30 TAB 3 Refills Prov:ARIELLE YEPEZ VENDING SUPERVISOR 20 Furosemide (FUROSEMIDE) 40 Mg Tablet, 40 MG PO DAILY for CHF for 30 Days, #30 TAB 3 Refills Prov:ARIELLE YEPEZ VENDING SUPERVISOR 20 Insulin Glargine,Hum.rec.anlog (LANTUS) 100 Unit/1 Ml Vial, 63 UNIT SQ QHS for DM, #1 VIAL make sure you have a bedtime snack as recommended Prov:ARIELLE YEPEZ VENDING SUPERVISOR 03/17/20 Reported Medications Metoprolol Tartrate (METOPROLOL TARTRATE) 25 Mg Tablet, 25 MG PO BID for heart 03/12/20 Tamsulosin Hcl (FLOMAX) 0.4 Mg Cap.er.24h, 1 CAP PO DAILY for BPH, #30 CAP 11 Refills 03/12/20 Gabapentin (Gabapentin) 300 Mg Capsule, 300 MG PO BID for neuropathy 03/12/20 Lisinopril (LISINOPRIL) 10 Mg Tablet, 10 MG PO DAILY for FOR HYPERTENSION, #30 TAB 0 Refills 04/27/14 Oxycodone/Apap 7.5-325 (PERCOCET 7.5-325 MG TABLET ) 1 Each Tablet, 1 TAB PO PRN TID PRN for PAIN, TAB 04/27/14 Discontinued Reported Medications Naproxen (NAPROSYN) 500 Mg Tablet, 1000 MG PO DAILY, TAB 04/27/14 ARIELLE YEPEZ APRN Mar 17, 2020 14:46
--- NOTE | 2020-03-17 14:56 | NUR ---
SS following up with discharge planning. Discharge orders for home healthcare received. Nurse navigator met with pt to discuss home healthcare. Pt agreeable to home healthcare with [facility], ; fax [phone]. Referral and discharge orders phoned and faxed to [facility].
--- NOTE | 2020-03-17 17:30 | NUR ---
Pt was escorted out via wheelchair with Olinda PEREZ to main entrance. Home to Home health services. Patient educated on follow ups and discharge care.
[2020-03-17] MEDS ORDERED: ATORVASTATIN CALCIUM 20 MG TABLET PO SCH (21:00)
[2020-03-18 01:08] LABS: HEMOGLOBIN A1C 5.7 % (4.8-5.6)
[2020-03-18 19:09] LABS: METHYLMALONIC ACID 608 nmol/L (0-378)
== END 2020-03-17 17:30 | disposition home health service (06) | DRG 286 ==
LOC: 2 NORTH 11:09
PROVIDERS: ADMIT Internal Medicine Cardiovascular Disease; ATTEND Internal Medicine Cardiovascular Disease
PROC: 30233R1 Transfusion of Nonautologous Platelets into Peripheral Vein, Percutaneous Approach (ICD-10-PCS; principal; 2020-03-14)
PROC: B246ZZZ Ultrasonography of Right and Left Heart (ICD-10-PCS; 2020-03-14)
PROC: 4A023N6 Measurement of Cardiac Sampling and Pressure, Right Heart, Percutaneous Approach (ICD-10-PCS; 2020-03-16)
PROC: B211YZZ Fluoroscopy of Multiple Coronary Arteries using Other Contrast (ICD-10-PCS; 2020-03-16)
PROC: 07DR3ZX Extraction of Iliac Bone Marrow, Percutaneous Approach, Diagnostic (ICD-10-PCS; 2020-03-17)
DX: I11.0 Hypertensive heart disease with heart failure (principal); N17.0 Acute kidney failure with tubular necrosis; D61.818 Other pancytopenia; K76.6 Portal hypertension; I25.10 Atherosclerotic heart disease of native coronary artery without angina pectoris; I50.33 Acute on chronic diastolic (congestive) heart failure; E78.5 Hyperlipidemia, unspecified; M19.90 Unspecified osteoarthritis, unspecified site; E11.42 Type 2 diabetes mellitus with diabetic polyneuropathy; I71.2 Thoracic aortic aneurysm, without rupture; I35.0 Nonrheumatic aortic (valve) stenosis; E66.01 Morbid (severe) obesity due to excess calories; J43.9 Emphysema, unspecified; N40.0 Benign prostatic hyperplasia without lower urinary tract symptoms; K76.0 Fatty (change of) liver, not elsewhere classified; E11.649 Type 2 diabetes mellitus with hypoglycemia without coma; K76.1 Chronic passive congestion of liver; D73.1 Hypersplenism; K80.20 Calculus of gallbladder without cholecystitis without obstruction; R79.1 Abnormal coagulation profile; Z68.33 Body mass index [BMI] 33.0-33.9, adult; Z79.899 Other long term (current) drug therapy; Z86.79 Personal history of other diseases of the circulatory system; Z85.038 Personal history of other malignant neoplasm of large intestine; Z90.49 Acquired absence of other specified parts of digestive tract
CPT/HCPCS: 36415; 38222; 71046; 76700; 77012; 80048; 80053; 80061; 82607; 82784; 82962; 83036; 83520; 83735; 83880; 83921; 84443; 84484; 85025; 85027; 85610; 85730; 86334; 86705; 86709; 86803; 86850; 86900; 86901; 87340; 88184; 88185; 88237; 93005; 93306; 93456; 99152; 99153; C1769; C1773; C1892; J1644; J1815; J1940; J2250; J3010; J3490; J7042; P9035; Q9967; 97110-GP; 97116-GP; 97530-GO; 97530-GP; 97535-GO; G0378

== ENCOUNTER 2020-03-26 13:44 | Inpatient (IN) | payer MEDICARE, BC ==
[~2020-03-26] VITALS: Ht 185.4 cm; Wt 117.7 kg
[~2020-03-26 13:44] MED LIST changes: +ATOR20TA58 PO; +FURO40TA4 PO; +GABA300C9 PO; +METO25TA4 PO; +POTA10TA12 PO; +TAMS0.4C97 PO
--- NOTE | 2020-03-26 14:41 | PHYS DOC ---
Past Medical History Smoking Status: Former Smoker General Adult EDM: Chief Complaint: WEAKNESS/GENERALIZED HPI: HPI: Patient is a 74 year old male, accompanied by his son, who presents to the emergency department with complaints of increased weakness and increased lauro rtness of breath since being discharged from the hospital. Patient states he was here within the last week and was diagnosed with congestive heart failure Dr. Gonzalez. He reports he has been so weak he is unable to get to the bathroom in time and has been incontinent of urine. He denies any chest pain, palpitations, dizziness, abdominal pain, dysuria, hematuria, diaphoresis, na usea, vomiting, diarrhea, cough, headache, numbness, tingling, or vision changes. Patient denies any fever or contact with anyone who is ill. He denies any recent falls or syncope. Patient states that his primary care Dr. Gonzalez told him to go to the emergency room so he can be evaluated for admission [facility]. He currently denies any pain. Review of Systems: Review of Systems: Constitutional: Denies fever or chills. [] Eyes: Denies change in visual acuity. [] HENT: Denies nasal congestion or sore throat. [] Respiratory: Denies cough; see HPI Cardiovascular: Denies chest pain or edema. [] GI: Denies abdominal pain, nausea, vomiting, bloody stools or diarrhea. [] : Denies dysuria. [] Musculoskeletal: Denies back pain or joint pain. [] Integument: Denies rash. [] Neurologic: Denies headache, focal weakness or sensory changes. [] Endocrine: Denies polyuria or polydipsia. [] Lymphatic: Denies swollen glands. [] Psychiatric: Denies depression or anxiety. [] Heart Score: Risk Factors: Risk Factors: DM, Current or recent (<one month) smoker, HTN, HLP, family history of CAD, obesity. Risk Scores: Score 0 - 3: 2.5% MACE over next 6 weeks - Discharge Home Score 4 - 6: 20.3% MACE over next 6 weeks - Admit for Clinical Observation Score 7 - 10: 72.7% MACE over next 6 weeks - Early Invasive Strategies Allergies: Allergies: Allergies Coded Allergies Type Severity Reaction Last Updated Verified No Known Drug Allergies 04/27/14 No Physical Exam: PE: Constitutional: Well developed, well nourished, no acute distress, non-toxic appearance. [] HENT: Normocephalic, atraumatic, bilateral external ears normal, nose normal. [] Eyes: PERRLA, EOMI, conjunctiva normal, no discharge. [] Neck: Normal range of motion, no stridor. [] Cardiovascular:Heart rate regular rhythm, no murmur [] Lungs & Thorax: Bilateral breath sounds clear to auscultation in upper lobes, crackles in bilateral lower posterior lobes, respirations even and unlabored, no retractions, no wheezing Abdomen: soft, no tenderness, no masses, no pulsatile masses. [] Skin: Warm, dry, no erythema, no rash. [] Back: No tenderness, no CVA tenderness. [] Extremities: No cyanosis, no clubbing, ROM intact, 2+ edema BLE Neurologic: Alert and oriented X 3, no focal deficits noted. [] Psychologic: Affect normal, judgement normal, mood normal. [] EKG: EK-sinus rhythm, rate 76, leftward axis no STEMI, read by Dr. Oliveros [] Radiology/Procedures: Radiology/Procedures: PROCEDURE: CHEST AP ONLY AP portable chest radiograph 03/26/2020 Clinical History: Weakness and shortness of breath. An AP erect portable digital radiograph of the chest was obtained. Comparison study is dated 03/12/2020. The cardiac silhouette is mildly enlarged. The thoracic aorta is tortuous. Emphysematous changes are seen involving both lungs. No acute pulmonary infiltrate is seen. No pleural effusion or pneumothorax is noted. Degenerative changes are seen involving the thoracic spine. Impression: No acute abnormality is seen.[] Course & Med Decision Making: Course & Med Decision Making Pertinent Labs and Imaging studies reviewed. (See chart for details) [address] Gastelum who is the admitting physician, and care was assumed following discussion of patient. Patient's vital signs improved and stable. Patient remains afebrile, appears nontoxic, respirations even and unlabored. Patient will be admitted to the CVC floor. Patient's case and plan of care also discussed with Dr. Oliveros [] Mariam Disclaimer: Mariam Disclaimer: This electronic medical record was generated, in whole or in part, using a voice recognition dictation system. Departure Departure Impression: Primary Impression: Hypotension Qualified Codes: I95.9 - Hypotension, unspecified Additional Impressions: Weakness Dehydration CHF (congestive heart failure) Disposition: ADMITTED INPATIENT Admitting Physician: GEETA AGUILAR) Condition: STABLE Referrals: LAZ GONZALEZ MD (PCP) Justicifation of Admission Dx: Justifications for Admission: Justification of Admission Dx: Yes CHF: Hemodynamic Instability AYDEE ALVES STEWARDESSES TEACHER Mar 26, 2020 14:41
[2020-03-26] MEDS ORDERED: IV NORMAL SALINE 1000ML BAG 1,000 ML IV ONE (14:45)
--- NOTE | 2020-03-26 15:08 | EKG ---
[facility] [address] [place] [address] Test Date: 2020-03-26 Test Time: 14:06:52 Pat Name: JAVIER BASS Department: Room: Gender: M Laborer Hoisting: : 1945 Requested By: AYDEE ALVES Order Number: [id number] Reading MD: William Swan Measurements Intervals [place] Rate: 76 P: 31 NM: 160 QRS: -20 QRSD: 98 T: 14 QT: 394 QTc: 448 Interpretive Statements SINUS RHYTHM LEFTWARD AXIS LOW LIMB LEAD VOLTAGE NONSPECIFIC ST-T WAVE CHANGES. Electronically Signed On 03-26-2020 16:53:18 CDT by William Swan
--- NOTE | 2020-03-26 15:15 | RAD ---
AP portable chest radiograph 03/26/2020 Clinical History: Weakness and shortness of breath. An AP erect portable digital radiograph of the chest was obtained. Comparison study is dated 03/12/2020. The cardiac silhouette is mildly enlarged. The thoracic aorta is tortuous. Emphysematous changes are seen involving both lungs. No acute pulmonary infiltrate is seen. No pleural effusion or pneumothorax is noted. Degenerative changes are seen involving the thoracic spine. Impression: No acute abnormality is seen. Electronically signed by: Juan Pettit MD (03/26/2020 3:12 PM) [id number]
[2020-03-26 15:23] LABS: BASO % 0 % (0-3); EOS % 0 % (0-3); HEMATOCRIT 32.9 % (39.0-53.0); HEMOGLOBIN 11.3 g/dL (13.0-17.5); LYMPH # 0.7 x10^3/uL (1.0-4.8); LYMPH % 19 % (24-48); MEAN CORPUSCULAR HEMOGLOBIN 28 pg (25-35); MEAN CORPUSCULAR HGB CONC 34 g/dL (31-37); MEAN CORPUSCULAR VOLUME 82 fL (79-100); MONO # 0.3 x10^3/uL (0.0-1.1); MONO % 9 % (0-9); NEUT # 2.7 x10^3/uL (1.8-7.7); NEUT % 72 % (31-73); PLATELET COUNT 40 x10^3/uL (140-400); RED BLOOD COUNT 4.02 x10^6/uL (4.30-5.70); WHITE BLOOD COUNT 3.7 x10^3/uL (4.0-11.0)
[2020-03-26 15:30] LABS: CALCIUM 7.7 mg/dL (8.5-10.1); CREATININE 1.8 mg/dL (0.7-1.3); POTASSIUM 4.7 mmol/L (3.5-5.1)
[2020-03-26 15:37] LABS: ALBUMIN 2.5 g/dL (3.4-5.0); ALBUMIN/GLOBULIN RATIO 0.5 (1.0-1.7); MAGNESIUM 2.6 mg/dL (1.8-2.4); TOTAL BILIRUBIN 1.5 mg/dL (0.2-1.0); TOTAL PROTEIN 7.1 g/dL (6.4-8.2)
[2020-03-26 15:42] LABS: PROTHROMBIN TIME PATIENT 14.7 SEC (11.7-14.0)
[2020-03-26 15:57] LABS: CREATINE KINASE 35 U/L (39-308)
[2020-03-26 17:30] VITALS: BP 113/59
[2020-03-26 19:10] VITALS: BP 118/57
[2020-03-26] MEDS ORDERED: oxyCODONE/APAP 7.5/325 1 TAB TABLET PO PRN (19:15)
--- NOTE | 2020-03-26 19:22 | PDOC1 ---
History and Physical Date of Admission Date of Admission DATE: 03/26/20 TIME: 19:17 Source Source: Chart review, Patient History of Present Illness History of Present Illness Mr. Pruett is a 74 old male recently admitted here for decompensated CHF on 03/12 for diuresis. he has still not been feeling well for a week, and came to the ER for dyspnea and fatigue today. NO pain, some LLE edema, HE has recent changes of pancytopenia, recent LHC revealed nonobstructive CAD and normal biventricular filling pressure bone marrow bx reviewed, 60% cellular. There is trilineage hematopoiesis, no increase in blasts, CV team had planned for TAVR. Past Medical History Past Medical History diastolic CHF, DM2 Cardiovascular: CHF, Hyperlipidemia, Aortic stenosis Pulmonary: COPD CENTRAL NERVOUS SYSTEM: Periperal neuropathy GI: Other Heme/Onc: Cancer Musculoskeletal: low back pain, Osteoarthritis, Swelling Renal/: Acute renal failure, Benign prostatic enlarg. Endocrine: Diabetes Past Surgical History Past Surgical History: Colon Resection Social History Smoke: No ALCOHOL: occassional Current Problem List Problem List Problems Medical Problems: (1) Dehydration Status: Acute (2) Hypotension Status: Acute (3) Weakness Status: Acute Current Medications Current Medications Current Medications Sodium Chloride 1,000 ml @ 1,000 mls/hr 1X ONCE IV Last administered on 03/26/20at 14:45; Start 03/26/20 at 14:45; Stop 03/26/20 at 15:44; Status DC Albuterol/ Ipratropium (Duoneb) 3 ml RTQID NEB ; Start 03/26/20 at 20:00; Status UNV Active Scripts Active Atorvastatin Calcium 20 Mg Tablet 10 Mg PO QHS 10 Days Klor-Con 10 (Potassium Chloride) 10 Meq Tablet.er 1 Tab PO DAILY 30 Days Furosemide 40 Mg Tablet 40 Mg PO DAILY 30 Days Lantus (Insulin Glargine,Hum.rec.anlog) 100 Unit/1 Ml Vial 63 Unit SQ QHS make sure you have a bedtime snack as recommended Reported Metoprolol Tartrate 25 Mg Tablet 25 Mg PO BID Flomax (Tamsulosin Hcl) 0.4 Mg Cap.er.24h 1 Cap PO DAILY Gabapentin 300 Mg Capsule 300 Mg PO BID Lisinopril 10 Mg Tablet 10 Mg PO DAILY Percocet 7.5-325 Mg Tablet (Oxycodone/Acetaminophen) 1 Each Tablet 1 Tab PO PRN TID PRN Allergies Allergies: Coded Allergies: No Known Drug Allergies (Unverified , 04/27/14) Physical Exam General: Alert, Oriented X3, Cooperative, mild distress HEENT: PERRLA, EOMI, Mucous membr. moist/pink Lungs: Clear to auscultation Heart: S1S2, RRR, no gallops, no murmurs Extremities: No clubbing, Normal pulses, Other (2+ LLe edema, 1+ right) Skin: No rashes Neuro: Normal speech Psych/Mental Status: Mental status NL, Mood NL Vitals Vitals Vital Signs Date Time Temp Pulse Resp B/P (MAP) Pulse Ox O2 Delivery O2 Flow Rate FiO2 03/26/20 17:30 98.1 80 24 113/59 (77) Room Air 98.0 98.1 03/26/20 16:34 94 Labs Labs Laboratory Tests Test 03/26/20 14:47 03/26/20 17:50 White Blood Count 3.7 x10^3/uL (4.0-11.0) Red Blood Count 4.02 x10^6/uL (4.30-5.70) Hemoglobin 11.3 g/dL (13.0-17.5) Hematocrit 32.9 % (39.0-53.0) Mean Corpuscular Volume 82 fL (79-100) Mean Corpuscular Hemoglobin 28 pg (25-35) Mean Corpuscular Hemoglobin Concent 34 g/dL (31-37) Red Cell Distribution Width 16.0 % (11.5-14.5) Platelet Count 40 x10^3/uL (140-400) Neutrophils (%) (Auto) 72 % (31-73) Lymphocytes (%) (Auto) 19 % (24-48) Monocytes (%) (Auto) 9 % (0-9) Eosinophils (%) (Auto) 0 % (0-3) Basophils (%) (Auto) 0 % (0-3) Neutrophils # (Auto) 2.7 x10^3/uL (1.8-7.7) Lymphocytes # (Auto) 0.7 x10^3/uL (1.0-4.8) Monocytes # (Auto) 0.3 x10^3/uL (0.0-1.1) Eosinophils # (Auto) 0.0 x10^3/uL (0.0-0.7) Basophils # (Auto) 0.0 x10^3/uL (0.0-0.2) Prothrombin Time 14.7 SEC (11.7-14.0) Prothromb Time International Ratio 1.2 (0.8-1.1) Activated Partial Thromboplast Time 43 SEC (24-38) Sodium Level 127 mmol/L (136-145) Potassium Level 4.7 mmol/L (3.5-5.1) Chloride Level 95 mmol/L (98-107) Carbon Dioxide Level 26 mmol/L (21-32) Anion Gap 6 (6-14) Blood Urea Nitrogen 38 mg/dL (8-26) Creatinine 1.8 mg/dL (0.7-1.3) Estimated GFR (Cockcroft-Gault) 37.0 BUN/Creatinine Ratio 21 (6-20) Glucose Level 123 mg/dL (70-99) Lactic Acid Level 1.4 mmol/L (0.4-2.0) Calcium Level 7.7 mg/dL (8.5-10.1) Magnesium Level 2.6 mg/dL (1.8-2.4) Total Bilirubin 1.5 mg/dL (0.2-1.0) Aspartate Amino Transf (AST/SGOT) 21 U/L (15-37) Alanine Aminotransferase (ALT/SGPT) 7 U/L (16-63) Alkaline Phosphatase 83 U/L (46-116) Creatine Kinase 35 U/L (39-308) Creatine Kinase MB (Mass) 0.8 ng/mL (0.0-3.6) Creatine Kinase MB Relative Index % (0-4) Troponin I Quantitative 0.090 ng/mL (0.000-0.055) KK-Gri-J-Type Natriuretic Peptide 4465 pg/mL (0-449) Total Protein 7.1 g/dL (6.4-8.2) Albumin 2.5 g/dL (3.4-5.0) Albumin/Globulin Ratio 0.5 (1.0-1.7) Glucose (Fingerstick) 97 mg/dL (70-99) Laboratory Tests Test 03/26/20 14:47 03/26/20 17:50 White Blood Count 3.7 x10^3/uL (4.0-11.0) Red Blood Count 4.02 x10^6/uL (4.30-5.70) Hemoglobin 11.3 g/dL (13.0-17.5) Hematocrit 32.9 % (39.0-53.0) Mean Corpuscular Volume 82 fL (79-100) Mean Corpuscular Hemoglobin 28 pg (25-35) Mean Corpuscular Hemoglobin Concent 34 g/dL (31-37) Red Cell Distribution Width 16.0 % (11.5-14.5) Platelet Count 40 x10^3/uL (140-400) Neutrophils (%) (Auto) 72 % (31-73) Lymphocytes (%) (Auto) 19 % (24-48) Monocytes (%) (Auto) 9 % (0-9) Eosinophils (%) (Auto) 0 % (0-3) Basophils (%) (Auto) 0 % (0-3) Neutrophils # (Auto) 2.7 x10^3/uL (1.8-7.7) Lymphocytes # (Auto) 0.7 x10^3/uL (1.0-4.8) Monocytes # (Auto) 0.3 x10^3/uL (0.0-1.1) Eosinophils # (Auto) 0.0 x10^3/uL (0.0-0.7) Basophils # (Auto) 0.0 x10^3/uL (0.0-0.2) Prothrombin Time 14.7 SEC (11.7-14.0) Prothromb Time International Ratio 1.2 (0.8-1.1) Activated Partial Thromboplast Time 43 SEC (24-38) Sodium Level 127 mmol/L (136-145) Potassium Level 4.7 mmol/L (3.5-5.1) Chloride Level 95 mmol/L (98-107) Carbon Dioxide Level 26 mmol/L (21-32) Anion Gap 6 (6-14) Blood Urea Nitrogen 38 mg/dL (8-26) Creatinine 1.8 mg/dL (0.7-1.3) Estimated GFR (Cockcroft-Gault) 37.0 BUN/Creatinine Ratio 21 (6-20) Glucose Level 123 mg/dL (70-99) Lactic Acid Level 1.4 mmol/L (0.4-2.0) Calcium Level 7.7 mg/dL (8.5-10.1) Magnesium Level 2.6 mg/dL (1.8-2.4) Total Bilirubin 1.5 mg/dL (0.2-1.0) Aspartate Amino Transf (AST/SGOT) 21 U/L (15-37) Alanine Aminotransferase (ALT/SGPT) 7 U/L (16-63) Alkaline Phosphatase 83 U/L (46-116) Creatine Kinase 35 U/L (39-308) Creatine Kinase MB (Mass) 0.8 ng/mL (0.0-3.6) Creatine Kinase MB Relative Index % (0-4) Troponin I Quantitative 0.090 ng/mL (0.000-0.055) DZ-[id number]-Type Natriuretic Peptide 4465 pg/mL (0-449) Total Protein 7.1 g/dL (6.4-8.2) Albumin 2.5 g/dL (3.4-5.0) Albumin/Globulin Ratio 0.5 (1.0-1.7) Glucose (Fingerstick) 97 mg/dL (70-99) VTE Prophylaxis Ordered VTE Prophylaxis Devices: No VTE Pharmacological Prophylaxi: Yes Assessment/Plan Assessment/Plan Acute on chronic systolic CHF last echo showed mod/severe valvular aortic stenosis with maximum pressure gradient of 63 mmHg and mean pressure gradient of 44 mmHg. obese, BMI 34 dm2 acuite renal failure on CKD3, admit Justicifation of Admission Dx: Justifications for Admission: Justification of Admission Dx: Yes CHF: Hemodynamic Instability APRIL KIMBLE MD Mar 26, 2020 19:22
[2020-03-26] MEDS: IPRATRPIUM/ALBUTEROL 0.5/2.5MG 3 ML NEBU. NEB SCH (19:59)
[2020-03-26] MEDS: ATORVASTATIN CALCIUM 10 MG TABLET. PO SCH (20:45)
[2020-03-26] MEDS: GABAPENTIN 300 MG CAPSULE. PO SCH (20:45)
[2020-03-26] MEDS: METOPROLOL TART IMMED RELEASE 25 MG TABLET. PO SCH (20:52)
[2020-03-26] MEDS: INSULIN GLARGINE SYRINGE. SQ SCH (21:00)
--- NOTE | 2020-03-26 23:00 | NUR ---
Patient c/o being weak w/ poor appetite. States he fell out of bed "[facility]" at home 2 weeks ago. Was wearing a wet brief all night. Pics taken earlier are in paper chart. Lives at home w/ son and teenaged granddaughter.
[2020-03-26 23:05] VITALS: BP 104/57
[2020-03-27] VITALS (8 sets, daily range): BP systolic 82–111; BP diastolic 48–61
[2020-03-27 03:23] LABS: BASO % 1 % (0-3); EOS % 0 % (0-3); HEMATOCRIT 30.9 % (39.0-53.0); HEMOGLOBIN 10.5 g/dL (13.0-17.5); LYMPH # 0.5 x10^3/uL (1.0-4.8); LYMPH % 17 % (24-48); MEAN CORPUSCULAR HEMOGLOBIN 28 pg (25-35); MEAN CORPUSCULAR HGB CONC 34 g/dL (31-37); MEAN CORPUSCULAR VOLUME 81 fL (79-100); MONO # 0.3 x10^3/uL (0.0-1.1); MONO % 10 % (0-9); NEUT # 2.4 x10^3/uL (1.8-7.7); NEUT % 73 % (31-73); PLATELET COUNT 34 x10^3/uL (140-400); RED CELL DISTRIBUTION WIDTH 16.2 % (11.5-14.5); WHITE BLOOD COUNT 3.3 x10^3/uL (4.0-11.0)
[2020-03-27 03:43] LABS: ALBUMIN 2.2 g/dL (3.4-5.0); ALBUMIN/GLOBULIN RATIO 0.5 (1.0-1.7); CALCIUM 7.2 mg/dL (8.5-10.1); CREATININE 1.5 mg/dL (0.7-1.3); GFR 45.6; POTASSIUM 4.6 mmol/L (3.5-5.1); TOTAL BILIRUBIN 1.4 mg/dL (0.2-1.0); TOTAL PROTEIN 6.6 g/dL (6.4-8.2)
[2020-03-27] MEDS: IPRATRPIUM/ALBUTEROL 0.5/2.5MG 3 ML NEBU. NEB SCH ×4 (07:22→21:24)
--- NOTE | 2020-03-27 08:31 | PDOC ---
PROGRESS NOTES Chief Complaint Chief Complaint A/P: Acute on chronic systolic CHF Mod/severe valvular aortic stenosis with maximum pressure gradient of 63 mmHg and mean pressure gradient of 44 mmHg. Obese, BMI 34 dm2 acute renal failure on CKD3 Hyponatremia Pancytopenia Severe protein calorie malnutrition Lung nodule Prediabetes - a1c 5.7 Elevated bilirubin Splenomegaly Gluteal, perineal ulcer - local wound care, A&D and zinc oxide History of Present Illness History of Present Illness Mr Pruett is a 74 yo w/ PMHx morbid obesity, DM2, hepatic steatosis, HLD, ILD, emphysema/COPD, bicuspid aortic valve with moderate-severe aortic stenosis with aortic valve area of 0.7 cm2, BPH, h/o colon cancer (cecum), s/p right hemicolectomy in 04/2014 who was recently admitted for decompensated CHF on 03/12 for diuresis, still not been feeling well for a week, and came to the ER for dyspnea and fatigue today. NO pain, scant LLE edema. Recent LHC revealed nonobstructive CAD and normal biventricular filling pressure. Also with pancytopenia on prior hospitalization status post bone marrow bx reviewed, 60% cellular with trilineage hematopoiesis, no increase in blasts. No mention of MDS. CV team had planned for TAVR referral. Labs consistent with pancytopenia, with WBC 3.3, Hb 10.5, platelets 34. NA 128, K4.6, BUN 32, CR 1.5, glucose 115, A1c 5.7, BNP 4465, bilirubin 1.4, albumin 2.2. Admitted for further care. He still feeling pretty fatigued today. Cardiology and nursing have notified me of perineal ulcer that is in place and this could be a barrier to having T AVR surgery. Short of breath. No chest pain Vitals Vitals Vital Signs Date Time Temp Pulse Resp B/P (MAP) Pulse Ox O2 Delivery O2 Flow Rate FiO2 03/27/20 07:22 97 Room Air 03/27/20 07:12 98.9 90 22 93/55 (68) 98.9 03/26/20 17:30 98.0 Physical Exam General: Alert, Oriented X3, Cooperative, mild distress Extremities: No clubbing, Normal pulses, Other (2+ LLe edema, 1+ right) Skin: No rashes Labs LABS Laboratory Tests Test 03/26/20 14:47 03/26/20 17:50 03/26/20 20:35 03/27/20 03:00 White Blood Count 3.7 x10^3/uL (4.0-11.0) 3.3 x10^3/uL (4.0-11.0) Red Blood Count 4.02 x10^6/uL (4.30-5.70) 3.80 x10^6/uL (4.30-5.70) Hemoglobin 11.3 g/dL (13.0-17.5) 10.5 g/dL (13.0-17.5) Hematocrit 32.9 % (39.0-53.0) 30.9 % (39.0-53.0) Mean Corpuscular Volume 82 fL (79-100) 81 fL (79-100) Mean Corpuscular Hemoglobin 28 pg (25-35) 28 pg (25-35) Mean Corpuscular Hemoglobin Concent 34 g/dL (31-37) 34 g/dL (31-37) Red Cell Distribution Width 16.0 % (11.5-14.5) 16.2 % (11.5-14.5) Platelet Count 40 x10^3/uL (140-400) 34 x10^3/uL (140-400) Neutrophils (%) (Auto) 72 % (31-73) 73 % (31-73) Lymphocytes (%) (Auto) 19 % (24-48) 17 % (24-48) Monocytes (%) (Auto) 9 % (0-9) 10 % (0-9) Eosinophils (%) (Auto) 0 % (0-3) 0 % (0-3) Basophils (%) (Auto) 0 % (0-3) 1 % (0-3) Neutrophils # (Auto) 2.7 x10^3/uL (1.8-7.7) 2.4 x10^3/uL (1.8-7.7) Lymphocytes # (Auto) 0.7 x10^3/uL (1.0-4.8) 0.5 x10^3/uL (1.0-4.8) Monocytes # (Auto) 0.3 x10^3/uL (0.0-1.1) 0.3 x10^3/uL (0.0-1.1) Eosinophils # (Auto) 0.0 x10^3/uL (0.0-0.7) 0.0 x10^3/uL (0.0-0.7) Basophils # (Auto) 0.0 x10^3/uL (0.0-0.2) 0.0 x10^3/uL (0.0-0.2) Prothrombin Time 14.7 SEC (11.7-14.0) Prothromb Time International Ratio 1.2 (0.8-1.1) Activated Partial Thromboplast Time 43 SEC (24-38) Sodium Level 127 mmol/L (136-145) 128 mmol/L (136-145) Potassium Level 4.7 mmol/L (3.5-5.1) 4.6 mmol/L (3.5-5.1) Chloride Level 95 mmol/L (98-107) 97 mmol/L (98-107) Carbon Dioxide Level 26 mmol/L (21-32) 25 mmol/L (21-32) Anion Gap 6 (6-14) 6 (6-14) Blood Urea Nitrogen 38 mg/dL (8-26) 32 mg/dL (8-26) Creatinine 1.8 mg/dL (0.7-1.3) 1.5 mg/dL (0.7-1.3) Estimated GFR (Cockcroft-Gault) 37.0 45.6 BUN/Creatinine Ratio 21 (6-20) 21 (6-20) Glucose Level 123 mg/dL (70-99) 115 mg/dL (70-99) Lactic Acid Level 1.4 mmol/L (0.4-2.0) Calcium Level 7.7 mg/dL (8.5-10.1) 7.2 mg/dL (8.5-10.1) Magnesium Level 2.6 mg/dL (1.8-2.4) Total Bilirubin 1.5 mg/dL (0.2-1.0) 1.4 mg/dL (0.2-1.0) Aspartate Amino Transf (AST/SGOT) 21 U/L (15-37) 20 U/L (15-37) Alanine Aminotransferase (ALT/SGPT) 7 U/L (16-63) 9 U/L (16-63) Alkaline Phosphatase 83 U/L (46-116) 80 U/L (46-116) Creatine Kinase 35 U/L (39-308) Creatine Kinase MB (Mass) 0.8 ng/mL (0.0-3.6) Creatine Kinase MB Relative Index % (0-4) Troponin I Quantitative 0.090 ng/mL (0.000-0.055) [id number]-Type Natriuretic Peptide 4465 pg/mL (0-449) Total Protein 7.1 g/dL (6.4-8.2) 6.6 g/dL (6.4-8.2) Albumin 2.5 g/dL (3.4-5.0) 2.2 g/dL (3.4-5.0) Albumin/Globulin Ratio 0.5 (1.0-1.7) 0.5 (1.0-1.7) Glucose (Fingerstick) 97 mg/dL (70-99) 121 mg/dL (70-99) Phosphorus Level 3.6 mg/dL (2.6-4.7) Test 03/27/20 07:52 Glucose (Fingerstick) 115 mg/dL (70-99) Assessment and Plan Assessmemt and Plan Problems Medical Problems: (1) Dehydration Status: Acute (2) Hypotension Status: Acute (3) Weakness Status: Acute Comment Review of Relevant I have reviewed the following items nurys (where applicable) has been applied. Labs Laboratory Tests Test 03/26/20 14:47 03/26/20 17:50 03/26/20 20:35 03/27/20 03:00 White Blood Count 3.7 x10^3/uL (4.0-11.0) 3.3 x10^3/uL (4.0-11.0) Red Blood Count 4.02 x10^6/uL (4.30-5.70) 3.80 x10^6/uL (4.30-5.70) Hemoglobin 11.3 g/dL (13.0-17.5) 10.5 g/dL (13.0-17.5) Hematocrit 32.9 % (39.0-53.0) 30.9 % (39.0-53.0) Mean Corpuscular Volume 82 fL (79-100) 81 fL (79-100) Mean Corpuscular Hemoglobin 28 pg (25-35) 28 pg (25-35) Mean Corpuscular Hemoglobin Concent 34 g/dL (31-37) 34 g/dL (31-37) Red Cell Distribution Width 16.0 % (11.5-14.5) 16.2 % (11.5-14.5) Platelet Count 40 x10^3/uL (140-400) 34 x10^3/uL (140-400) Neutrophils (%) (Auto) 72 % (31-73) 73 % (31-73) Lymphocytes (%) (Auto) 19 % (24-48) 17 % (24-48) Monocytes (%) (Auto) 9 % (0-9) 10 % (0-9) Eosinophils (%) (Auto) 0 % (0-3) 0 % (0-3) Basophils (%) (Auto) 0 % (0-3) 1 % (0-3) Neutrophils # (Auto) 2.7 x10^3/uL (1.8-7.7) 2.4 x10^3/uL (1.8-7.7) Lymphocytes # (Auto) 0.7 x10^3/uL (1.0-4.8) 0.5 x10^3/uL (1.0-4.8) Monocytes # (Auto) 0.3 x10^3/uL (0.0-1.1) 0.3 x10^3/uL (0.0-1.1) Eosinophils # (Auto) 0.0 x10^3/uL (0.0-0.7) 0.0 x10^3/uL (0.0-0.7) Basophils # (Auto) 0.0 x10^3/uL (0.0-0.2) 0.0 x10^3/uL (0.0-0.2) Prothrombin Time 14.7 SEC (11.7-14.0) Prothromb Time International Ratio 1.2 (0.8-1.1) Activated Partial Thromboplast Time 43 SEC (24-38) Sodium Level 127 mmol/L (136-145) 128 mmol/L (136-145) Potassium Level 4.7 mmol/L (3.5-5.1) 4.6 mmol/L (3.5-5.1) Chloride Level 95 mmol/L (98-107) 97 mmol/L (98-107) Carbon Dioxide Level 26 mmol/L (21-32) 25 mmol/L (21-32) Anion Gap 6 (6-14) 6 (6-14) Blood Urea Nitrogen 38 mg/dL (8-26) 32 mg/dL (8-26) Creatinine 1.8 mg/dL (0.7-1.3) 1.5 mg/dL (0.7-1.3) Estimated GFR (Cockcroft-Gault) 37.0 45.6 BUN/Creatinine Ratio 21 (6-20) 21 (6-20) Glucose Level 123 mg/dL (70-99) 115 mg/dL (70-99) Lactic Acid Level 1.4 mmol/L (0.4-2.0) Calcium Level 7.7 mg/dL (8.5-10.1) 7.2 mg/dL (8.5-10.1) Magnesium Level 2.6 mg/dL (1.8-2.4) Total Bilirubin 1.5 mg/dL (0.2-1.0) 1.4 mg/dL (0.2-1.0) Aspartate Amino Transf (AST/SGOT) 21 U/L (15-37) 20 U/L (15-37) Alanine Aminotransferase (ALT/SGPT) 7 U/L (16-63) 9 U/L (16-63) Alkaline Phosphatase 83 U/L (46-116) 80 U/L (46-116) Creatine Kinase 35 U/L (39-308) Creatine Kinase MB (Mass) 0.8 ng/mL (0.0-3.6) Creatine Kinase MB Relative Index % (0-4) Troponin I Quantitative 0.090 ng/mL (0.000-0.055) SX-[id number]-F-Type Natriuretic Peptide 4465 pg/mL (0-449) Total Protein 7.1 g/dL (6.4-8.2) 6.6 g/dL (6.4-8.2) Albumin 2.5 g/dL (3.4-5.0) 2.2 g/dL (3.4-5.0) Albumin/Globulin Ratio 0.5 (1.0-1.7) 0.5 (1.0-1.7) Glucose (Fingerstick) 97 mg/dL (70-99) 121 mg/dL (70-99) Phosphorus Level 3.6 mg/dL (2.6-4.7) Test 03/27/20 07:52 Glucose (Fingerstick) 115 mg/dL (70-99) Laboratory Tests Test 03/26/20 14:47 03/26/20 17:50 03/26/20 20:35 03/27/20 03:00 White Blood Count 3.7 x10^3/uL (4.0-11.0) 3.3 x10^3/uL (4.0-11.0) Red Blood Count 4.02 x10^6/uL (4.30-5.70) 3.80 x10^6/uL (4.30-5.70) Hemoglobin 11.3 g/dL (13.0-17.5) 10.5 g/dL (13.0-17.5) Hematocrit 32.9 % (39.0-53.0) 30.9 % (39.0-53.0) Mean Corpuscular Volume 82 fL (79-100) 81 fL (79-100) Mean Corpuscular Hemoglobin 28 pg (25-35) 28 pg (25-35) Mean Corpuscular Hemoglobin Concent 34 g/dL (31-37) 34 g/dL (31-37) Red Cell Distribution Width 16.0 % (11.5-14.5) 16.2 % (11.5-14.5) Platelet Count 40 x10^3/uL (140-400) 34 x10^3/uL (140-400) Neutrophils (%) (Auto) 72 % (31-73) 73 % (31-73) Lymphocytes (%) (Auto) 19 % (24-48) 17 % (24-48) Monocytes (%) (Auto) 9 % (0-9) 10 % (0-9) Eosinophils (%) (Auto) 0 % (0-3) 0 % (0-3) Basophils (%) (Auto) 0 % (0-3) 1 % (0-3) Neutrophils # (Auto) 2.7 x10^3/uL (1.8-7.7) 2.4 x10^3/uL (1.8-7.7) Lymphocytes # (Auto) 0.7 x10^3/uL (1.0-4.8) 0.5 x10^3/uL (1.0-4.8) Monocytes # (Auto) 0.3 x10^3/uL (0.0-1.1) 0.3 x10^3/uL (0.0-1.1) Eosinophils # (Auto) 0.0 x10^3/uL (0.0-0.7) 0.0 x10^3/uL (0.0-0.7) Basophils # (Auto) 0.0 x10^3/uL (0.0-0.2) 0.0 x10^3/uL (0.0-0.2) Prothrombin Time 14.7 SEC (11.7-14.0) Prothromb Time International Ratio 1.2 (0.8-1.1) Activated Partial Thromboplast Time 43 SEC (24-38) Sodium Level 127 mmol/L (136-145) 128 mmol/L (136-145) Potassium Level 4.7 mmol/L (3.5-5.1) 4.6 mmol/L (3.5-5.1) Chloride Level 95 mmol/L (98-107) 97 mmol/L (98-107) Carbon Dioxide Level 26 mmol/L (21-32) 25 mmol/L (21-32) Anion Gap 6 (6-14) 6 (6-14) Blood Urea Nitrogen 38 mg/dL (8-26) 32 mg/dL (8-26) Creatinine 1.8 mg/dL (0.7-1.3) 1.5 mg/dL (0.7-1.3) Estimated GFR (Cockcroft-Gault) 37.0 45.6 BUN/Creatinine Ratio 21 (6-20) 21 (6-20) Glucose Level 123 mg/dL (70-99) 115 mg/dL (70-99) Lactic Acid Level 1.4 mmol/L (0.4-2.0) Calcium Level 7.7 mg/dL (8.5-10.1) 7.2 mg/dL (8.5-10.1) Magnesium Level 2.6 mg/dL (1.8-2.4) Total Bilirubin 1.5 mg/dL (0.2-1.0) 1.4 mg/dL (0.2-1.0) Aspartate Amino Transf (AST/SGOT) 21 U/L (15-37) 20 U/L (15-37) Alanine Aminotransferase (ALT/SGPT) 7 U/L (16-63) 9 U/L (16-63) Alkaline Phosphatase 83 U/L (46-116) 80 U/L (46-116) Creatine Kinase 35 U/L (39-308) Creatine Kinase MB (Mass) 0.8 ng/mL (0.0-3.6) Creatine Kinase MB Relative Index % (0-4) Troponin I Quantitative 0.090 ng/mL (0.000-0.055) EL-Bso-W-Type Natriuretic Peptide 4465 pg/mL (0-449) Total Protein 7.1 g/dL (6.4-8.2) 6.6 g/dL (6.4-8.2) Albumin 2.5 g/dL (3.4-5.0) 2.2 g/dL (3.4-5.0) Albumin/Globulin Ratio 0.5 (1.0-1.7) 0.5 (1.0-1.7) Glucose (Fingerstick) 97 mg/dL (70-99) 121 mg/dL (70-99) Phosphorus Level 3.6 mg/dL (2.6-4.7) Test 03/27/20 07:52 Glucose (Fingerstick) 115 mg/dL (70-99) Medications Current Medications Sodium Chloride 1,000 ml @ 1,000 mls/hr 1X ONCE IV Last administered on 03/26/20at 14:45; Start 03/26/20 at 14:45; Stop 03/26/20 at 15:44; Status DC Albuterol/ Ipratropium (Duoneb) 3 ml RTQID NEB Last administered on 03/27/20at 07:22; Start 03/26/20 at 20:00 Atorvastatin Calcium (Lipitor) 10 mg QHS PO Last administered on 03/26/20at 20:45; Start 03/26/20 at 21:00 Furosemide (Lasix) 40 mg DAILY PO ; Start 03/27/20 at 09:00 Gabapentin (Neurontin) 300 mg BID PO Last administered on 03/26/20at 20:45; Start 03/26/20 at 21:00 Insulin Glargine (Lantus Syringe) 63 unit QHS SQ ; Start 03/26/20 at 21:00 Lisinopril (Prinivil) 10 mg DAILY PO ; Start 03/27/20 at 09:00 Metoprolol Tartrate (Lopressor) 25 mg BID PO Last administered on 03/26/20at 20:52; Start 03/26/20 at 21:00 Oxycodone/ Acetaminophen (Percocet 7.5/ 325) 1 tab PRN TID PRN PO PAIN; Start 03/26/20 at 19:15 Potassium Chloride (Klor-Con) 10 meq DAILY PO ; Start 03/27/20 at 09:00 Tamsulosin HCl (Flomax) 0.4 mg DAILY PO ; Start 03/27/20 at 09:00 Active Scripts Active Atorvastatin Calcium 20 Mg Tablet 10 Mg PO QHS 10 Days Klor-Con 10 (Potassium Chloride) 10 Meq Tablet.er 1 Tab PO DAILY 30 Days Furosemide 40 Mg Tablet 40 Mg PO DAILY 30 Days Lantus (Insulin Glargine,Hum.rec.anlog) 100 Unit/1 Ml Vial 63 Unit SQ QHS make sure you have a bedtime snack as recommended Reported Metoprolol Tartrate 25 Mg Tablet 25 Mg PO BID Flomax (Tamsulosin Hcl) 0.4 Mg Cap.er.24h 1 Cap PO DAILY Gabapentin 300 Mg Capsule 300 Mg PO BID Lisinopril 10 Mg Tablet 10 Mg PO DAILY Percocet 7.5-325 Mg Tablet (Oxycodone/Acetaminophen) 1 Each Tablet 1 Tab PO PRN TID PRN Vitals/I & O Vital Sign - Last 24 Hours 03/26/20 03/26/20 03/26/20 03/26/20 14:00 14:34 14:36 14:40 Temp 99.1 99.1 Pulse 74 73 76 69 Resp 18 16 18 10 B/P (MAP) 95/57 (70) Pulse Ox 99 97 97 O2 Delivery Room Air 03/26/20 03/26/20 03/26/20 03/26/20 14:48 14:49 14:59 15:04 Pulse 73 69 69 70 Resp 15 16 18 13 Pulse Ox 97 90 6/12/20 6/12/20 6/12/20 6/12/20 15:19 15:34 15:49 15:55 Pulse 69 72 72 Resp 12 11 14 Pulse Ox 94 97 97 03/26/20 03/26/20 03/26/20 03/26/20 16:04 16:19 16:34 17:30 Temp 98.1 98.1 Pulse 74 76 75 80 Resp 10 11 12 24 B/P (MAP) 113/59 (77) Pulse Ox 98 97 94 O2 Delivery Room Air O2 Flow Rate 98.0 03/26/20 03/26/20 03/26/20 03/26/20 19:10 20:00 20:01 20:52 Temp 98.1 98.1 Pulse 89 89 Resp 20 B/P (MAP) 118/57 (77) 118/57 Pulse Ox 97 98 O2 Delivery Room Air Room Air Room Air 03/26/20 03/27/20 03/27/20 03/27/20 23:05 03:30 07:12 07:22 Temp 98.7 99.0 98.9 98.7 99.0 98.9 Pulse 91 89 90 Resp 21 22 22 B/P (MAP) 104/57 (73) 111/61 (78) 93/55 (68) Pulse Ox 94 93 95 97 O2 Delivery Room Air Room Air Room Air Room Air Intake and Output 03/26/20 03/26/20 03/27/20 15:00 23:00 07:00 Intake Total 120 ml Output Total 200 ml Balance -200 ml 120 ml KARLI PACE MD Mar 27, 2020 08:31
[2020-03-27] MEDS: TAMSULOSIN 0.4 MG CAP.ER.24H. PO SCH (09:00)
[2020-03-27] MEDS: FUROSEMIDE 40 MG TABLET. PO SCH (09:00)
[2020-03-27] MEDS ORDERED: LISINOPRIL 10 MG TABLET PO SCH (09:00)
[2020-03-27] MEDS: POTASSIUM CHLORIDE 10 MEQ TABLET.ER. PO SCH (11:52)
[2020-03-27] MEDS: GABAPENTIN 300 MG CAPSULE. PO SCH ×2 (11:52→21:03)
[2020-03-27] MEDS: METOPROLOL TART IMMED RELEASE 25 MG TABLET. PO SCH ×2 (12:36→21:04)
[2020-03-27] MEDS ORDERED: ZINC OXIDE 20% TOPICAL OINTMENT 28GM TUBE. TP PRN (15:00)
[2020-03-27] MEDS ORDERED: VITS A & D/LANOLIN TOPICAL OINTMENT 42GM TUBE. TP PRN (15:00)
[2020-03-27] MEDS: ATORVASTATIN CALCIUM 10 MG TABLET. PO SCH (21:04)
[2020-03-27] MEDS: INSULIN GLARGINE SYRINGE. SQ SCH (21:11)
--- NOTE | 2020-03-27 23:35 | CONS ---
DATE OF CONSULTATION: 03/27/2020 REASON FOR CONSULTATION: Heart failure and failure to thrive. CONSULTING PHYSICIAN: Dr. Gastelum. HISTORY OF PRESENT ILLNESS: The patient is a very pleasant 74-year-old man who is well known to our service, who presented to the hospital in the setting of progressive dyspnea. He was just recently discharged approximately 1 week ago after a diagnosis of severe aortic stenosis and pancytopenia. He was due to have evaluation for his pancytopenia prior to referral for [facility] for a transcatheter aortic valve replacement for severe aortic stenosis. Since discharge, he reports he has not been doing well. He has had progressive dyspnea. He has been admitted for further evaluation and treatment. PAST MEDICAL HISTORY: 1. Diastolic heart failure. 2. Moderate nonobstructive coronary artery disease. 3. Severe aortic stenosis with mean gradient of 44. 4. Pancytopenia with platelet count less than 50. 5. Diabetes. 6. Dyslipidemia. SOCIAL HISTORY: The patient denies any alcohol, tobacco or illicit drug use. FAMILY HISTORY: Noncontributory. REVIEW OF SYSTEMS: Notable for dyspnea and fatigue, otherwise negative for 07/28 systems reviewed, unless otherwise mentioned above in HPI. ALLERGIES: No known drug allergies. CURRENT CARDIOVASCULAR MEDICATIONS: 1. Lasix 40 mg p.o. daily. 2. Metoprolol 25 mg p.o. b.i.d. 3. Atorvastatin 10 mg daily. PHYSICAL EXAMINATION: VITAL SIGNS: Afebrile, 87, 20, 102/56, 96% on room air. GENERAL: Alert and oriented, no acute distress. HEAD AND NECK: Unremarkable. CARDIAC: Regular rate and rhythm with a 4/6 systolic murmur at the right upper sternal border. LUNGS: Notable for decreased breath sounds at the bases. ABDOMEN: Obese, protuberant, nontender, nondistended. EXTREMITIES: No clubbing, cyanosis or edema. NEUROLOGIC: No focal deficits. Pulses 1+ radial and pedal pulses. DIAGNOSTIC STUDIES: Hemoglobin 10.5, platelet count 34. Creatinine 1.5. IMPRESSION: Pancytopenia with likely platelets sequestration by the spleen in the setting of severe aortic stenosis. RECOMMENDATIONS: 1. At this present time, he has a perineal wound, which we will continue treatment and care for and once this is healed, we will plan for referral to [facility] for transcatheter aortic valve replacement. He will likely need placement in the near future. Social work and primary care are evaluating him for disposition plans. Thank you for this consultation. ARIE AMADO MD DR: ZANDRA/cheryl JOB#: [id number] / [id number]
[2020-03-28] VITALS (7 sets, daily range): BP systolic 84–124; BP diastolic 48–61
[2020-03-28 04:21] LABS: BILIRUBIN,URINE NEGATIVE (NEG); CLARITY,URINE CLOUDY; COLOR,URINE AMBER; NITRITE,URINE NEGATIVE (NEG); PROTEIN,URINE 30 mg/dL (NEG-TRACE)
[2020-03-28 04:38] LABS: BACTERIA,URINE FEW /HPF (0-FEW); RBC,URINE TNTC /HPF (0-2); SQUAMOUS EPITHELIAL CELL,UR FEW /LPF
[2020-03-28 04:39] LABS: HYALINE CASTS, URINE OCCASIONAL /HPF
[2020-03-28] MEDS: IPRATRPIUM/ALBUTEROL 0.5/2.5MG 3 ML NEBU. NEB SCH ×4 (07:09→19:40)
--- NOTE | 2020-03-28 08:55 | PDOC ---
PROGRESS NOTES Chief Complaint Chief Complaint A/P: Acute on chronic systolic CHF Mod/severe valvular aortic stenosis with maximum pressure gradient of 63 mmHg and mean pressure gradient of 44 mmHg. Obese, BMI 34 dm2 acute renal failure on CKD3 Hyponatremia Pancytopenia Severe protein calorie malnutrition Lung nodule Prediabetes - a1c 5.7 Elevated bilirubin Splenomegaly Gluteal, perineal ulcer - local wound care, A&D and zinc oxide History of Present Illness History of Present Illness Mr Pruett is a 74 yo w/ PMHx morbid obesity, DM2, hepatic steatosis, HLD, ILD, emphysema/COPD, bicuspid aortic valve with moderate-severe aortic stenosis with aortic valve area of 0.7 cm2, BPH, h/o colon cancer (cecum), s/p right hemicolectomy in 04/2014 who was recently admitted for decompensated CHF on 03/12 for diuresis, still not been feeling well for a week, and came to the ER for dyspnea and fatigue today. NO pain, scant LLE edema. Recent LHC revealed nonobstructive CAD and normal biventricular filling pressure. Also with pancytopenia on prior hospitalization status post bone marrow bx reviewed, 60% cellular with trilineage hematopoiesis, no increase in blasts. No mention of MDS. CV team had planned for TAVR referral. Labs consistent with pancytopenia, with WBC 3.3, Hb 10.5, platelets 34. NA 128, K4.6, BUN 32, CR 1.5, glucose 115, A1c 5.7, BNP 4465, bilirubin 1.4, albumin 2.2. Admitted for further care. 03/27: He still feeling pretty fatigued today. Cardiology and nursing have notified me of perineal ulcer that is in place and this could be a barrier to having TAVR surgery. Short of breath. No chest pain Afebrile overnight. NA 128, K4.4, BUN 25, CR 1.5, calcium 7.3, albumin 2.2. Still feeling very weak having trouble with his local wound care. PT/OT recommending SNF on discharge, this is totally appropriate in order for him to be eligible for TAVR he will need this wound healed. Vitals Vitals Vital Signs Date Time Temp Pulse Resp B/P (MAP) Pulse Ox O2 Delivery O2 Flow Rate FiO2 03/28/20 07:57 Room Air 03/28/20 07:10 93 03/28/20 07:00 99.4 98 18 124/60 (81) 99.4 Physical Exam General: Alert, Oriented X3, Cooperative, mild distress Extremities: No clubbing, Normal pulses, Other (2+ LLe edema, 1+ right) Skin: No rashes Labs LABS Laboratory Tests Test 03/27/20 12:17 03/27/20 16:49 03/27/20 20:45 03/28/20 03:35 Glucose (Fingerstick) 160 mg/dL (70-99) 107 mg/dL (70-99) 125 mg/dL (70-99) Urine Collection Type Unknown Urine Color Danay Urine Clarity Cloudy Urine pH 6.0 (<5.0-8.0) Urine Specific [place] 1.015 (1.000-1.030) Urine Protein 30 mg/dL (NEG-TRACE) Urine Glucose (UA) Negative mg/dL (NEG) Urine Ketones (Stick) Negative mg/dL (NEG) Urine Blood Large (NEG) Urine Nitrite Negative (NEG) Urine Bilirubin Negative (NEG) Urine Urobilinogen Dipstick 2.0 mg/dL (0.2 mg/dL) Urine Leukocyte Esterase Negative (NEG) Urine RBC Tntc /HPF (0-2) Urine WBC 1-4 /HPF (0-4) Urine Squamous Epithelial Cells Few /LPF Urine Bacteria Few /HPF (0-FEW) Urine Hyaline Casts Occasional /HPF Urine Mucus Slight /LPF Test 03/28/20 07:19 Glucose (Fingerstick) 95 mg/dL (70-99) Assessment and Plan Assessmemt and Plan Problems Medical Problems: (1) Dehydration Status: Acute (2) Hypotension Status: Acute (3) Weakness Status: Acute Comment Review of Relevant I have reviewed the following items nurys (where applicable) has been applied. Labs Laboratory Tests Test 03/26/20 14:47 03/26/20 17:50 03/26/20 20:35 03/27/20 03:00 White Blood Count 3.7 x10^3/uL (4.0-11.0) 3.3 x10^3/uL (4.0-11.0) Red Blood Count 4.02 x10^6/uL (4.30-5.70) 3.80 x10^6/uL (4.30-5.70) Hemoglobin 11.3 g/dL (13.0-17.5) 10.5 g/dL (13.0-17.5) Hematocrit 32.9 % (39.0-53.0) 30.9 % (39.0-53.0) Mean Corpuscular Volume 82 fL (79-100) 81 fL (79-100) Mean Corpuscular Hemoglobin 28 pg (25-35) 28 pg (25-35) Mean Corpuscular Hemoglobin Concent 34 g/dL (31-37) 34 g/dL (31-37) Red Cell Distribution Width 16.0 % (11.5-14.5) 16.2 % (11.5-14.5) Platelet Count 40 x10^3/uL (140-400) 34 x10^3/uL (140-400) Neutrophils (%) (Auto) 72 % (31-73) 73 % (31-73) Lymphocytes (%) (Auto) 19 % (24-48) 17 % (24-48) Monocytes (%) (Auto) 9 % (0-9) 10 % (0-9) Eosinophils (%) (Auto) 0 % (0-3) 0 % (0-3) Basophils (%) (Auto) 0 % (0-3) 1 % (0-3) Neutrophils # (Auto) 2.7 x10^3/uL (1.8-7.7) 2.4 x10^3/uL (1.8-7.7) Lymphocytes # (Auto) 0.7 x10^3/uL (1.0-4.8) 0.5 x10^3/uL (1.0-4.8) Monocytes # (Auto) 0.3 x10^3/uL (0.0-1.1) 0.3 x10^3/uL (0.0-1.1) Eosinophils # (Auto) 0.0 x10^3/uL (0.0-0.7) 0.0 x10^3/uL (0.0-0.7) Basophils # (Auto) 0.0 x10^3/uL (0.0-0.2) 0.0 x10^3/uL (0.0-0.2) Prothrombin Time 14.7 SEC (11.7-14.0) Prothromb Time International Ratio 1.2 (0.8-1.1) Activated Partial Thromboplast Time 43 SEC (24-38) Sodium Level 127 mmol/L (136-145) 128 mmol/L (136-145) Potassium Level 4.7 mmol/L (3.5-5.1) 4.6 mmol/L (3.5-5.1) Chloride Level 95 mmol/L (98-107) 97 mmol/L (98-107) Carbon Dioxide Level 26 mmol/L (21-32) 25 mmol/L (21-32) Anion Gap 6 (6-14) 6 (6-14) Blood Urea Nitrogen 38 mg/dL (8-26) 32 mg/dL (8-26) Creatinine 1.8 mg/dL (0.7-1.3) 1.5 mg/dL (0.7-1.3) Estimated GFR (Cockcroft-Gault) 37.0 45.6 BUN/Creatinine Ratio 21 (6-20) 21 (6-20) Glucose Level 123 mg/dL (70-99) 115 mg/dL (70-99) Lactic Acid Level 1.4 mmol/L (0.4-2.0) Calcium Level 7.7 mg/dL (8.5-10.1) 7.2 mg/dL (8.5-10.1) Magnesium Level 2.6 mg/dL (1.8-2.4) Total Bilirubin 1.5 mg/dL (0.2-1.0) 1.4 mg/dL (0.2-1.0) Aspartate Amino Transf (AST/SGOT) 21 U/L (15-37) 20 U/L (15-37) Alanine Aminotransferase (ALT/SGPT) 7 U/L (16-63) 9 U/L (16-63) Alkaline Phosphatase 83 U/L (46-116) 80 U/L (46-116) Creatine Kinase 35 U/L (39-308) Creatine Kinase MB (Mass) 0.8 ng/mL (0.0-3.6) Creatine Kinase MB Relative Index % (0-4) Troponin I Quantitative 0.090 ng/mL (0.000-0.055) CO-Fuj-L-Type Natriuretic Peptide 4465 pg/mL (0-449) Total Protein 7.1 g/dL (6.4-8.2) 6.6 g/dL (6.4-8.2) Albumin 2.5 g/dL (3.4-5.0) 2.2 g/dL (3.4-5.0) Albumin/Globulin Ratio 0.5 (1.0-1.7) 0.5 (1.0-1.7) Glucose (Fingerstick) 97 mg/dL (70-99) 121 mg/dL (70-99) Phosphorus Level 3.6 mg/dL (2.6-4.7) Test 03/27/20 07:52 03/27/20 12:17 03/27/20 16:49 03/27/20 20:45 Glucose (Fingerstick) 115 mg/dL (70-99) 160 mg/dL (70-99) 107 mg/dL (70-99) 125 mg/dL (70-99) Test 03/28/20 03:35 03/28/20 07:19 Urine Collection Type Unknown Urine Color Danay Urine Clarity Cloudy Urine pH 6.0 (<5.0-8.0) Urine Specific [place] 1.015 (1.000-1.030) Urine Protein 30 mg/dL (NEG-TRACE) Urine Glucose (UA) Negative mg/dL (NEG) Urine Ketones (Stick) Negative mg/dL (NEG) Urine Blood Large (NEG) Urine Nitrite Negative (NEG) Urine Bilirubin Negative (NEG) Urine Urobilinogen Dipstick 2.0 mg/dL (0.2 mg/dL) Urine Leukocyte Esterase Negative (NEG) Urine RBC Tntc /HPF (0-2) Urine WBC 1-4 /HPF (0-4) Urine Squamous Epithelial Cells Few /LPF Urine Bacteria Few /HPF (0-FEW) Urine Hyaline Casts Occasional /HPF Urine Mucus Slight /LPF Glucose (Fingerstick) 95 mg/dL (70-99) Laboratory Tests Test 03/27/20 12:17 03/27/20 16:49 03/27/20 20:45 03/28/20 03:35 Glucose (Fingerstick) 160 mg/dL (70-99) 107 mg/dL (70-99) 125 mg/dL (70-99) Urine Collection Type Unknown Urine Color Danay Urine Clarity Cloudy Urine pH 6.0 (<5.0-8.0) Urine Specific [place] 1.015 (1.000-1.030) Urine Protein 30 mg/dL (NEG-TRACE) Urine Glucose (UA) Negative mg/dL (NEG) Urine Ketones (Stick) Negative mg/dL (NEG) Urine Blood Large (NEG) Urine Nitrite Negative (NEG) Urine Bilirubin Negative (NEG) Urine Urobilinogen Dipstick 2.0 mg/dL (0.2 mg/dL) Urine Leukocyte Esterase Negative (NEG) Urine RBC Tntc /HPF (0-2) Urine WBC 1-4 /HPF (0-4) Urine Squamous Epithelial Cells Few /LPF Urine Bacteria Few /HPF (0-FEW) Urine Hyaline Casts Occasional /HPF Urine Mucus Slight /LPF Test 03/28/20 07:19 Glucose (Fingerstick) 95 mg/dL (70-99) Medications Current Medications Sodium Chloride 1,000 ml @ 1,000 mls/hr 1X ONCE IV Last administered on 03/26/20at 14:45; Start 03/26/20 at 14:45; Stop 03/26/20 at 15:44; Status DC Albuterol/ Ipratropium (Duoneb) 3 ml RTQID NEB Last administered on 03/28/20at 07:09; Start 03/26/20 at 20:00 Atorvastatin Calcium (Lipitor) 10 mg QHS PO Last administered on 03/27/20at 21:04; Start 03/26/20 at 21:00 Furosemide (Lasix) 40 mg DAILY PO ; Start 03/27/20 at 09:00 Gabapentin (Neurontin) 300 mg BID PO Last administered on 03/27/20at 21:03; Start 03/26/20 at 21:00 Insulin Glargine (Lantus Syringe) 63 unit QHS SQ Last administered on 03/27/20at 21:11; Start 03/26/20 at 21:00 Lisinopril (Prinivil) 10 mg DAILY PO ; Start 03/27/20 at 09:00; Stop 03/27/20 at 14:50; Status DC Metoprolol Tartrate (Lopressor) 25 mg BID PO Last administered on 03/27/20at 21:04; Start 03/26/20 at 21:00 Oxycodone/ Acetaminophen (Percocet 7.5/ 325) 1 tab PRN TID PRN PO PAIN; Start 03/26/20 at 19:15 Potassium Chloride (Klor-Con) 10 meq DAILY PO Last administered on 03/27/20at 11:52; Start 03/27/20 at 09:00 Tamsulosin HCl (Flomax) 0.4 mg DAILY PO ; Start 03/27/20 at 09:00 Vitamin A/Vitamin D (Vitamin A & D Ointment) 1 nabil PRN Q1HR PRN TP SKIN PROTECTION; Start 03/27/20 at 15:00 Zinc Oxide (Zinc Oxide 20% Topical) 1 nabil PRN Q4HRS PRN TP SKIN PROTECTION; Start 03/27/20 at 15:00 Active Scripts Active Atorvastatin Calcium 20 Mg Tablet 10 Mg PO QHS 10 Days Klor-Con 10 (Potassium Chloride) 10 Meq Tablet.er 1 Tab PO DAILY 30 Days Furosemide 40 Mg Tablet 40 Mg PO DAILY 30 Days Lantus (Insulin Glargine,Hum.rec.anlog) 100 Unit/1 Ml Vial 63 Unit SQ QHS make sure you have a bedtime snack as recommended Reported Metoprolol Tartrate 25 Mg Tablet 25 Mg PO BID Flomax (Tamsulosin Hcl) 0.4 Mg Cap.er.24h 1 Cap PO DAILY Gabapentin 300 Mg Capsule 300 Mg PO BID Lisinopril 10 Mg Tablet 10 Mg PO DAILY Percocet 7.5-325 Mg Tablet (Oxycodone/Acetaminophen) 1 Each Tablet 1 Tab PO PRN TID PRN Vitals/I & O Vital Sign - Last 24 Hours 03/27/20 03/27/20 03/27/20 03/27/20 10:20 11:00 11:35 12:36 Temp 98.2 98.2 Pulse 87 122 Resp 18 B/P (MAP) 86/53 (64) 94/50 (65) 95/47 85/53 (64) 82/48 (59) 95/50 (65) Pulse Ox 94 99 O2 Delivery Room Air Room Air 03/27/20 03/27/20 03/27/20 03/27/20 14:21 15:00 15:24 19:15 Temp 98.2 98.2 98.2 98.2 Pulse 81 98 87 Resp 18 20 B/P (MAP) 92/54 (67) 102/53 (69) 102/56 (71) Pulse Ox 96 98 96 O2 Delivery Room Air Room Air Room Air 03/27/20 03/27/20 03/27/20 03/27/20 20:00 21:04 21:25 22:30 Temp 98.6 98.6 Pulse 87 95 Resp 20 B/P (MAP) 102/56 100/51 (67) Pulse Ox 95 93 O2 Delivery Room Air Room Air Room Air 03/28/20 03/28/20 03/28/20 03/28/20 03:25 07:00 07:10 07:57 Temp 99.1 99.4 99.1 99.4 Pulse 85 98 Resp 18 18 B/P (MAP) 113/56 (75) 124/60 (81) Pulse Ox 95 96 93 O2 Delivery Room Air Room Air Room Air Room Air Intake and Output 03/27/20 03/27/20 03/28/20 15:00 23:00 07:00 Intake Total 200 ml 650 ml 200 ml Output Total 325 ml 365 ml 220 ml Balance -125 ml 285 ml -20 ml KARLI PACE MD Mar 28, 2020 08:55
[2020-03-28] MEDS: TAMSULOSIN 0.4 MG CAP.ER.24H. PO SCH (09:17)
[2020-03-28] MEDS: GABAPENTIN 300 MG CAPSULE. PO SCH ×2 (09:17→20:38)
[2020-03-28] MEDS: POTASSIUM CHLORIDE 10 MEQ TABLET.ER. PO SCH (09:17)
[2020-03-28] MEDS: METOPROLOL TART IMMED RELEASE 25 MG TABLET. PO SCH ×2 (09:18→20:39)
[2020-03-28 09:46] LABS: CALCIUM 7.3 mg/dL (8.5-10.1); CREATININE 1.5 mg/dL (0.7-1.3); GFR 45.6; MAGNESIUM 2.4 mg/dL (1.8-2.4); POTASSIUM 4.4 mmol/L (3.5-5.1)
--- NOTE | 2020-03-28 10:55 | PDOC ---
CARDIOLOGY PROGRESS NOTE SUBJECTIVE: Continues to feel fatigued. Denies any chest pain. He has significant dyspnea. Spoke to his son today. He has been eating ok. OBJECTIVE: Vital Signs/I&O: Vital Signs Date Time Temp Pulse Resp B/P (MAP) Pulse Ox O2 Delivery O2 Flow Rate FiO2 03/28/20 09:18 96 102/53 03/28/20 07:57 Room Air 03/28/20 07:10 93 03/28/20 07:00 99.4 18 99.4 I & O 03/27/20 03/27/20 03/28/20 15:00 23:00 07:00 Intake Total 200 ml 650 ml 200 ml Output Total 325 ml 365 ml 420 ml Balance -125 ml 285 ml -220 ml Objective: He appears fatigued. He is a/o x 3. No LE edema. 1+ pedal pulses. Non focal neuro exam. CURRENT MEDICATIONS: Furosemide Atorvastatin DIAGNOSTIC TESTING: Labs: Laboratory Tests 03/28/20 09:05 Laboratory Tests Test 03/27/20 12:17 03/27/20 16:49 03/27/20 20:45 03/28/20 03:35 Glucose (Fingerstick) 160 mg/dL (70-99) H 107 mg/dL (70-99) H 125 mg/dL (70-99) H Urine Collection Type Unknown Urine Color Danay Urine Clarity Cloudy Urine pH 6.0 (<5.0-8.0) Urine Specific [place] 1.015 (1.000-1.030) Urine Protein 30 mg/dL (NEG-TRACE) Urine Glucose (UA) Negative mg/dL (NEG) Urine Ketones (Stick) Negative mg/dL (NEG) Urine Blood Large (NEG) Urine Nitrite Negative (NEG) Urine Bilirubin Negative (NEG) Urine Urobilinogen Dipstick 2.0 mg/dL (0.2 mg/dL) Urine Leukocyte Esterase Negative (NEG) Urine RBC Tntc /HPF (0-2) Urine WBC 1-4 /HPF (0-4) Urine Squamous Epithelial Cells Few /LPF Urine Bacteria Few /HPF (0-FEW) Urine Hyaline Casts Occasional /HPF Urine Mucus Slight /LPF Test 03/28/20 07:19 03/28/20 09:05 Glucose (Fingerstick) 95 mg/dL (70-99) Sodium Level 128 mmol/L (136-145) L Potassium Level 4.4 mmol/L (3.5-5.1) Chloride Level 97 mmol/L (98-107) L Carbon Dioxide Level 23 mmol/L (21-32) Anion Gap 8 (6-14) Blood Urea Nitrogen 25 mg/dL (8-26) Creatinine 1.5 mg/dL (0.7-1.3) H Estimated GFR (Cockcroft-Gault) 45.6 Glucose Level 116 mg/dL (70-99) H Calcium Level 7.3 mg/dL (8.5-10.1) L ASSESSMENT: 1. Acute on chronic diastolic HF 2. Severe aortic stenosis, MG 44 mm Hg 3. Non-obstructive coronary disease. 4. BUDDY on CKD, improved. 5. Hyponatremia, likely secondary to above. 6. Failure to thrive 7. Severe thrombocytopenia PLAN: 1. Continue aggressive PT/OT and wound care. 2. Plan for outpt referral for TAVR at [facility]. Will send referral for expedited evaluation. 3. Will discuss with hem/onc any further evaluation, currently BM bx and labs unremarkable. Justicifation of Admission Dx: Justifications for Admission: Justification of Admission Dx: Yes CHF: Hemodynamic Instability ARIE AMADO MD Mar 28, 2020 10:55
[2020-03-28] MEDS: FUROSEMIDE 40 MG TABLET. PO SCH (11:34)
[2020-03-28] MEDS: INSULIN GLARGINE SYRINGE. SQ SCH (20:39)
[2020-03-28] MEDS: ATORVASTATIN CALCIUM 10 MG TABLET. PO SCH (20:39)
[2020-03-29 02:45] VITALS: BP 95/53
[2020-03-29 04:44] LABS: ALBUMIN 2.1 g/dL (3.4-5.0); ALBUMIN/GLOBULIN RATIO 0.5 (1.0-1.7); CALCIUM 7.2 mg/dL (8.5-10.1); CREATININE 1.6 mg/dL (0.7-1.3); GFR 42.3; POTASSIUM 4.4 mmol/L (3.5-5.1); TOTAL BILIRUBIN 1.2 mg/dL (0.2-1.0); TOTAL PROTEIN 6.5 g/dL (6.4-8.2)
[2020-03-29 06:55] VITALS: BP 131/64
[2020-03-29] MEDS: IPRATRPIUM/ALBUTEROL 0.5/2.5MG 3 ML NEBU. NEB SCH ×3 (07:38→16:22)
--- NOTE | 2020-03-29 09:08 | PDOC ---
CARDIOLOGY PROGRESS NOTE SUBJECTIVE: No new events. Still debilitated and weak. Poor appetite. Not having BM. No chest pain. Dyspnea persists OBJECTIVE: Vital Signs/I&O: Vital Signs Date Time Temp Pulse Resp B/P (MAP) Pulse Ox O2 Delivery O2 Flow Rate FiO2 03/29/20 07:39 97 Room Air 03/29/20 06:55 98.5 83 20 131/64 (86) 98.5 I & O 03/28/20 03/28/20 03/29/20 15:00 23:00 07:00 Intake Total 180 ml 180 ml 220 ml Output Total 100 ml 150 ml 100 ml Balance 80 ml 30 ml 120 ml Objective: a/o x 3. NAD Weak/well nourished Normal S1, diminished S2. Obese abdomen, soft, No LE edema 1+ radial and pedal pulses. non-focal neuro exam skin with petechiae CURRENT MEDICATIONS: ASA, Metoprolol, Lasix, Atorvastatin DIAGNOSTIC TESTING: Cr 1.6 ASSESSMENT: 1. Acute on chronic diastolic HF - 2. Severe , MG 44 3. Non-critical CAD 4. Failure to thrive 5. Severe thrombocytopenia PLAN: 1. Plan for evaluation for TAVR at [facility] as inpt transfer as patient does not think he can do rehab. Will await phone call back from [facility]. Disposition pending. Continue current meds. Thanks. Will follow along. Justicifation of Admission Dx: Justifications for Admission: Justification of Admission Dx: Yes CHF: Hemodynamic Instability ARIE AMADO MD Mar 29, 2020 09:08
[2020-03-29] MEDS: TAMSULOSIN 0.4 MG CAP.ER.24H. PO SCH (09:13)
[2020-03-29] MEDS: GABAPENTIN 300 MG CAPSULE. PO SCH (09:14)
[2020-03-29] MEDS: POTASSIUM CHLORIDE 10 MEQ TABLET.ER. PO SCH (09:14)
[2020-03-29] MEDS: METOPROLOL TART IMMED RELEASE 25 MG TABLET. PO SCH (09:14)
[2020-03-29] MEDS: FUROSEMIDE 40 MG TABLET. PO SCH (09:14)
[2020-03-29 10:26] VITALS: BP 83/53
--- NOTE | 2020-03-29 11:19 | NUR ---
SS following for discharge planning. SS reviewed pt chart and discussed with pt RN. Pt is from home and is currently on room air. SS received notification that COVID19 testing was done at Dr. Zepeda office on 03/26/2020 and is currently pending. SS was notified that pt is accepted at [facility], ; fax [phone], pending COVID19 test result. SS discussed with Dr. Gonzalez. Pt needing TAVR. [facility] transfer requested. SS contacted transfer team, , and spoke with Kate, . SS made request for transfer. Clinical faxed to transfer team, . Images being clouded to . SS currently awaiting acceptance decision and will proceed accordingly with discharge planning.
[2020-03-29 14:18] VITALS: BP 95/54
--- NOTE | 2020-03-29 14:52 | PDOC3 ---
Discharge Summary Visit Information Date of Admission: Mar 26, 2020 Date of Discharge: Mar 29, 2020 Admitting Diagnosis Comment: Acute on chronic systolic CHF last echo showed mod/severe valvular aortic stenosis with maximum pressure gradient of 63 mmHg and mean pressure gradient of 44 mmHg. obese, BMI 34 dm2 acuite renal failure on CKD3, Final Diagnosis Problems Medical Problems: Acute on chronic systolic CHF Mod/severe valvular aortic stenosis with maximum pressure gradient of 63 mmHg and mean pressure gradient of 44 mmHg. Obese, BMI 34 dm2 acute renal failure on CKD3 Hyponatremia Pancytopenia Severe protein calorie malnutrition Lung nodule Prediabetes - a1c 5.7 Elevated bilirubin Splenomegaly Gluteal, perineal ulcer - local wound care, A&D and zinc oxide Brief Hospital Course Allergies Allergies Coded Allergies Type Severity Reaction Last Updated Verified No Known Drug Allergies 04/27/14 No Vital Signs Vital Signs Date Time Temp Pulse Resp B/P (MAP) Pulse Ox O2 Delivery O2 Flow Rate FiO2 03/29/20 14:18 98.9 88 20 95/54 (68) 97 Room Air 98.9 Lab Results Laboratory Tests Test 03/27/20 16:49 03/27/20 20:45 03/28/20 03:35 03/28/20 07:19 Glucose (Fingerstick) 107 mg/dL (70-99) 125 mg/dL (70-99) 95 mg/dL (70-99) Urine Collection Type Unknown Urine Color Danay Urine Clarity Cloudy Urine pH 6.0 (<5.0-8.0) Urine Specific [place] 1.015 (1.000-1.030) Urine Protein 30 mg/dL (NEG-TRACE) Urine Glucose (UA) Negative mg/dL (NEG) Urine Ketones (Stick) Negative mg/dL (NEG) Urine Blood Large (NEG) Urine Nitrite Negative (NEG) Urine Bilirubin Negative (NEG) Urine Urobilinogen Dipstick 2.0 mg/dL (0.2 mg/dL) Urine Leukocyte Esterase Negative (NEG) Urine RBC Tntc /HPF (0-2) Urine WBC 1-4 /HPF (0-4) Urine Squamous Epithelial Cells Few /LPF Urine Bacteria Few /HPF (0-FEW) Urine Hyaline Casts Occasional /HPF Urine Mucus Slight /LPF Test 03/28/20 09:05 03/28/20 11:59 03/28/20 17:04 03/29/20 03:15 Sodium Level 128 mmol/L (136-145) 127 mmol/L (136-145) Potassium Level 4.4 mmol/L (3.5-5.1) 4.4 mmol/L (3.5-5.1) Chloride Level 97 mmol/L (98-107) 95 mmol/L (98-107) Carbon Dioxide Level 23 mmol/L (21-32) 24 mmol/L (21-32) Anion Gap 8 (6-14) 8 (6-14) Blood Urea Nitrogen 25 mg/dL (8-26) 24 mg/dL (8-26) Creatinine 1.5 mg/dL (0.7-1.3) 1.6 mg/dL (0.7-1.3) Estimated GFR (Cockcroft-Gault) 45.6 42.3 Glucose Level 116 mg/dL (70-99) 93 mg/dL (70-99) Calcium Level 7.3 mg/dL (8.5-10.1) 7.2 mg/dL (8.5-10.1) Magnesium Level 2.4 mg/dL (1.8-2.4) Glucose (Fingerstick) 96 mg/dL (70-99) 102 mg/dL (70-99) BUN/Creatinine Ratio 15 (6-20) Total Bilirubin 1.2 mg/dL (0.2-1.0) Aspartate Amino Transf (AST/SGOT) 21 U/L (15-37) Alanine Aminotransferase (ALT/SGPT) 8 U/L (16-63) Alkaline Phosphatase 94 U/L (46-116) Total Protein 6.5 g/dL (6.4-8.2) Albumin 2.1 g/dL (3.4-5.0) Albumin/Globulin Ratio 0.5 (1.0-1.7) Test 03/29/20 06:57 03/29/20 11:20 Glucose (Fingerstick) 89 mg/dL (70-99) 90 mg/dL (70-99) Laboratory Tests Test 03/28/20 17:04 03/29/20 03:15 03/29/20 06:57 03/29/20 11:20 Glucose (Fingerstick) 102 mg/dL (70-99) 89 mg/dL (70-99) 90 mg/dL (70-99) Sodium Level 127 mmol/L (136-145) Potassium Level 4.4 mmol/L (3.5-5.1) Chloride Level 95 mmol/L (98-107) Carbon Dioxide Level 24 mmol/L (21-32) Anion Gap 8 (6-14) Blood Urea Nitrogen 24 mg/dL (8-26) Creatinine 1.6 mg/dL (0.7-1.3) Estimated GFR (Cockcroft-Gault) 42.3 BUN/Creatinine Ratio 15 (6-20) Glucose Level 93 mg/dL (70-99) Calcium Level 7.2 mg/dL (8.5-10.1) Total Bilirubin 1.2 mg/dL (0.2-1.0) Aspartate Amino Transf (AST/SGOT) 21 U/L (15-37) Alanine Aminotransferase (ALT/SGPT) 8 U/L (16-63) Alkaline Phosphatase 94 U/L (46-116) Total Protein 6.5 g/dL (6.4-8.2) Albumin 2.1 g/dL (3.4-5.0) Albumin/Globulin Ratio 0.5 (1.0-1.7) Brief Hospital Course Mr. Pruett is a 74 old male recently admitted here for decompensated CHF on 03/12 for diuresis. he has still not been feeling well for a week, and came to the ER for dyspnea and fatigue today. NO pain, some LLE edema, HE has recent changes of pancytopenia, recent LHC revealed nonobstructive CAD and normal biventricular filling pressure bone marrow bx reviewed, 60% cellular. There is trilineage hematopoiesis, no increase in blasts, CV team had planned for TAVR. Mr Pruett is a 74 yo w/ PMHx morbid obesity, DM2, hepatic steatosis, HLD, ILD, emphysema/COPD, bicuspid aortic valve with moderate-severe aortic stenosis with aortic valve area of 0.7 cm2, BPH, h/o colon cancer (cecum), s/p right hemicolectomy in 04/2014 who was recently admitted for decompensated CHF on 03/12 for diuresis, still not been feeling well for a week, and came to the ER for dyspnea and fatigue today. NO pain, scant LLE edema. Recent LHC revealed nonobstructive CAD and normal biventricular filling pressure. Also with p ancytopenia on prior hospitalization status post bone marrow bx reviewed, 60% cellular with trilineage hematopoiesis, no increase in blasts. No mention of MDS. CV team had planned for TAVR referral. Labs consistent with pancytopenia, with WBC 3.3, Hb 10.5, platelets 34. NA 128, K4.6, BUN 32, CR 1.5, glucose 115, A1c 5.7, BNP 4465, bilirubin 1.4, albumin 2.2. Admitted for further care. 03/27: He still feeling pretty fatigued today. Cardiology and nursing have notified me of perineal ulcer that is in place and this could be a barrier to having TAVR surgery. Short of breath. No chest pain 03/28: Afebrile overnight. NA 128, K4.4, BUN 25, CR 1.5, calcium 7.3, albumin 2.2. Still feeling very weak having trouble with his local wound care. PT/OT recommending SNF on discharge, this is totally appropriate in order for him to be eligible for TAVR he will need this wound healed. 03/29: Patient was referred to and has been accepted in transfer for evaluation of TAVR, he seems to be quite weak at the present time and most likely his quality of life will not improve despite referring him to a half-way facility for strengthening. Hopefully he will be considered for the procedure. He has been medically optimized for transfer and is in hemodynamica lly stable condition. Greater than 35 minutes were spent in the discharge process the patient in counseling coordination of care and arrangements for a safe transfer Assessment Assessment a/o x 3. NAD Weak/well nourished Normal S1, diminished S2. Obese abdomen, soft, No LE edema 1+ radial and pedal pulses. non-focal neuro exam skin with petechiae Discharge Information Condition at Discharge: Stable Follow Up: Weeks Disposition/Orders: D/C to Another Facility Scheduled Atorvastatin Calcium (Atorvastatin Calcium) 20 Mg Tablet, 10 MG PO QHS for cad for 10 Days, #30 Ref 3 Prescribed by: ARIELLE YEPEZ on 03/17/20 1423 Last Action: Continued on 03/26/201914 by APRIL KIMBLE Furosemide (Furosemide) 40 Mg Tablet, 40 MG PO DAILY for CHF for 30 Days, #30 Ref 3 Prescribed by: ARIELLE YEPEZ on 03/17/20 1418 Last Action: Continued on 03/26/201914 by APRIL KIMBLE Gabapentin (Gabapentin) 300 Mg Capsule, 300 MG PO BID for neuropathy, (Reported) Entered as Reported by: ROLDAN PEREZ on 03/12/201234 Last Action: Continued on 03/26/201914 by APRIL KIMBLE Insulin Glargine,Hum.rec.anlog (Lantus) 100 Unit/1 Ml Vial, 63 UNIT SQ QHS for DM, #1 make sure you have a bedtime snack as recommended Prescribed by: ARIELLE YEPEZ on 03/17/201417 Last Action: Continued on 03/26/201914 by APRIL KIMBLE Lisinopril (Lisinopril) 10 Mg Tablet, 10 MG PO DAILY for FOR HYPERTENSION, #30 Ref 0 (Reported) Entered as Reported by: MARIELA IRAHETA on 04/27/141599 Last Action: Continued on 03/26/201914 by APRIL KIMBLE Metoprolol Tartrate (Metoprolol Tartrate) 25 Mg Tablet, 25 MG PO BID for heart, (Reported) Entered as Reported by: ROLDAN PEREZ on 03/12/201236 Last Action: Continued on 03/26/201914 by APRIL KIMBLE Potassium Chloride (Klor-Con 10) 10 Meq Tablet.er, 1 TAB PO DAILY for CHF, lasix for 30 Days, #30 Ref 3 Prescribed by: ARIELLE YEPEZ on 03/17/201417 Last Action: Continued on 03/26/201914 by APRIL KIMBLE Tamsulosin Hcl (Flomax) 0.4 Mg Cap.er.24h, 1 CAP PO DAILY for BPH, #30 Ref 11 (Reported) Entered as Reported by: ROLDAN PEREZ on 03/12/201234 Last Action: Continued on 03/26/201914 by APRIL KIMBLE Scheduled PRN Oxycodone/Apap 7.5-325 (Percocet 7.5-325 Mg Tablet ) 1 Each Tablet, 1 TAB PO PRN TID PRN for PAIN, (Reported) Entered as Reported by: MARIELA IRAHETA on 04/27/141599 Last Action: Continued on 03/26/201914 by APRIL KIMBLE Justicifation of Admission Dx: Justifications for Admission: Justification of Admission Dx: Yes CHF: Hemodynamic Instability LUKAS GALINDO MD Mar 29, 2020 14:52
--- NOTE | 2020-03-29 15:50 | NUR ---
SS following up with discharge planning. Pt accepted at with accepting physician, Maria Eugenia Meneses. SS currently awaiting bed assignment and report number. Packet, transfer form, and ambulance form on chart. Contact information for floor RN provided to . SS will continue to follow for discharge planning.
--- NOTE | 2020-03-29 16:07 | NUR ---
Wound Care Wound Type/Assessment: See Wound Assessment. patient has a laceration on the periarea, the area was cleaned, measured and redressed at this time. patient stated he thinks the wound happened when he fell. Treatment Recommendations/Plan:Recommendations of Calazime cream,prn. Patient transferring to today per MARY Horn.
[2020-03-29 18:33] VITALS: BP 106/58
--- NOTE | 2020-03-29 18:43 | NUR ---
Discharge Note: [facility] [place] Discharge instructions and discharge home medications reviewed with Other facility and a copy given. All questions have been answered and understanding verbalized. The following instructions and handouts were given: report given to MARY Garza at . Meds including stopping Lisinopril, labs, mental status, weakness, history, labs, IVs wounds and wound care, diet, GI/, ACHS and heart rhythm/blood pressures. Discontinued lines and drains: IVs left in place for transfer. Patient discharged to . left by EMS at 0 and report given to MARY Garza at [facility]. Addendum: 03/29/20 at 1924 by GEOVANNA EVANS RN notified transfer nurse at [facility], when EMS left with patient at 1830.
== END 2020-03-29 18:30 | disposition short-term general hospital (02) | DRG 682 ==
LOC: ER 13:44 → 2 NORTH 16:25
PROVIDERS: ADMIT Internal Medicine; ATTEND Internal Medicine
DX: N17.9 Acute kidney failure, unspecified (principal); I50.43 Acute on chronic combined systolic (congestive) and diastolic (congestive) heart failure; E43 Unspecified severe protein-calorie malnutrition; D61.818 Other pancytopenia; E87.1 Hypo-osmolality and hyponatremia; I35.0 Nonrheumatic aortic (valve) stenosis; E66.01 Morbid (severe) obesity due to excess calories; E11.22 Type 2 diabetes mellitus with diabetic chronic kidney disease; E78.5 Hyperlipidemia, unspecified; E86.0 Dehydration; J43.9 Emphysema, unspecified; R91.1 Solitary pulmonary nodule; E11.42 Type 2 diabetes mellitus with diabetic polyneuropathy; I25.10 Atherosclerotic heart disease of native coronary artery without angina pectoris; N40.1 Benign prostatic hyperplasia with lower urinary tract symptoms; N39.498 Other specified urinary incontinence; L98.499 Non-pressure chronic ulcer of skin of other sites with unspecified severity; N18.3 Chronic kidney disease, stage 3 (moderate); R62.7 Adult failure to thrive; Z68.34 Body mass index [BMI] 34.0-34.9, adult; Z85.038 Personal history of other malignant neoplasm of large intestine; Z87.891 Personal history of nicotine dependence; Z90.49 Acquired absence of other specified parts of digestive tract; I11.0 Hypertensive heart disease with heart failure
CPT/HCPCS: 36415; 71045; 80048; 80053; 81001; 82553; 82962; 83605; 83735; 83880; 84100; 84484; 85025; 85610; 85730; 93005; 94640; 94760; 96360; 99285; J1815; J7030; 97110-GP; 97116-GP; 97530-GP; 97535-GO; G0378